=== PATIENT | female | born 1945 | race Two or more races ===

== ENCOUNTER 2018-08-16 23:35 | Inpatient (IN) | payer MEDICARE, MEDICAID ==
[~2018-08-16] VITALS: Ht 149.9 cm; Wt 39.9 kg
[2018-08-17] VITALS (7 sets, daily range): BP systolic 95–122; BP diastolic 55–82
[2018-08-17] MEDS ORDERED: LORAZEPAM INJ 2 MG/ML VIAL IVP ONE
--- NOTE | 2018-08-17 | NUR ---
PT BIB RA. "HAD FREQUENT SEIZURES". NO SOB NOTED. NO ACUTE DISTRESS AT THIS TIME. PT AOX1. NO PAIN NOTED. AWAITING EVAL.
[2018-08-17] MEDS ORDERED: LORAZEPAM INJ 2 MG/ML VIAL ONE (00:03)
--- NOTE | 2018-08-17 00:05 | NUR ---
LABS/URINE COLLECTED AND SENT FOR ANALYSIS.
[2018-08-17 00:27] LABS: APPEARANCE,URINE SL CLOUDY (CLEAR); BILIRUBIN,URINE NEGATIVE (NEGATIVE); BLOOD, URINE NEGATIVE Ery/uL (NEGATIVE); COLOR,URINE YELLOW (YELLOW); KETONES,URINE NEGATIVE (NEGATIVE); LEUKOCYTE ESTERASE ,URINE NEGATIVE (NEGATIVE); NITRITE, URINE NEGATIVE (NEGATIVE); PROTEIN,URINE 1+ mg/dl (NEGATIVE); UGLUCOSE NEGATIVE (NEGATIVE)
[2018-08-17 00:28] LABS: BASOPHILS # (AUTO) 0.1 /CMM (0.0-0.2); EOSINOPHILS % (AUTO) 0.9 % (0.0-6.0); HEMATOCRIT 38 % (33-45); HEMOGLOBIN 12.5 g/dL (11.5-14.8); LYMPHOCYTES # (AUTO) 2.3 /CMM (0.8-4.8); MEAN CORPUSCULAR HGB CONC 33 g/dl (31.0-36.0); MEAN CORPUSCULAR VOLUME 82 fL (82-100); MONOCYTES # (AUTO) 0.5 /CMM (0.1-1.30); MONOCYTES % (AUTO) 5.3 % (2.0-12.0); NEUTROPHILS # (AUTO) 7.4 /CMM (1.8-8.9); NEUTROPHILS % (AUTO) 70.8 % (43.0-81.0); PLATELET COUNT (AUTO) 473 /CMM (150-450); RED BLOOD CELL COUNT(AUTO) 4.69 MIL/uL (4.0-5.2); WHITE BLOOD COUNT (AUTO) 10.4 K/uL (4.3-11.0)
[2018-08-17] MEDS ORDERED: IV NS 0.9% 500 ML BAG IV ONE ×2 (00:30)
[2018-08-17 00:35] LABS: CALCIUM, SERUM 8.6 mg/dL (8.5-10.1); CARBON DIOXIDE 17 mmol/L (21-32); CHLORIDE 101 mmol/L (98-107); CREATININE 0.8 mg/dL (0.6-1.3); GLUCOSE 218 mg/dL (74-106); POTASSIUM 4.7 mmol/L (3.5-5.1); SODIUM SERUM 134 mmol/L (136-145); UREA NITROGEN, BLOOD 11 mg/dL (7-18)
[2018-08-17 00:38] LABS: BACTERIA,URINE Few /HPF (None Seen); RBC,URINE 0-2 /HPF (0-2); SQUAMOUS EPITHELIAL CELL,UR Few /HPF (None Seen)
[2018-08-17] MEDS ORDERED: IV NS 0.9% 1,000 ML BAG IV ONE (01:00)
[2018-08-17] MEDS ORDERED: LEVETIRACETAM (500MG) 500 MG/5 ML VIAL IV ONE (01:57)
[2018-08-17] MEDS ORDERED: HYDROCODONE/APAP 5/325MG 1 EACH TABLET PO PRN (02:00)
[2018-08-17] MEDS ORDERED: MAGNESIUM HYDROXIDE 30 ML UDC PO PRN (02:00)
[2018-08-17] MEDS ORDERED: MAG HYDROX/AL HYDROX/SIMETH 30 ML UDC PO PRN (02:00)
[2018-08-17] MEDS ORDERED: ACETAMINOPHEN 325 MG TABLET PO PRN (02:00)
[2018-08-17] MEDS: LEVETIRACETAM (500MG) 500 MG in IV NS 0.9% 100 ML IV SCH ×2 (02:00→02:24)
[2018-08-17] MEDS ORDERED: ONDANSETRON HCL/PF 4 MG/2 ML VIAL IVP PRN (02:00)
[2018-08-17] MEDS ORDERED: Z GUARD REMEDY 2 OZ OINT TP PRN (02:00)
--- NOTE | 2018-08-17 02:09 | NUR ---
REPORT GIVEN TO CORNELIUS ALCARAZ
[2018-08-17] MEDS ORDERED: LEVETIRACETAM (500MG) 500 MG in IV NS 0.9% 100 ML IV STA (02:10)
--- NOTE | 2018-08-17 02:20 | NUR ---
RN ADMITTING NOTES RECEIVED PT FROM ER, VIA ER. PT IS LETHARGIC, AROUSABLE TO LIGHT PAIN. ON 15L O2 VIA NON REBREATHER MASK. IN NO SIGNS OF PAIN. WITH INTACT AND PATENT (R)WRIST G18, (L)WRIST G24, AND (R)LOWER LEG G20 HEPLOCK. PLACED ON TELEMONITOR, SINUS TACHY, HR 108. F/C INTACT AND IN PLACED DRAINING JOHNNY COLOR URINE. HOB ELEVATED, BED IN LOWEST AND LOCKED POSITION, PADDED SIDE RAILS. SAFETY MEASURES AND SEIZURE PRECAUTION IN PLACED. CALL LIGHT WITHIN EASY REACH. WILL CONT TO MONITOR
[2018-08-17] MEDS: IV NS 0.9% 1,000 ML IV PRN ×2 (02:42→21:49)
[2018-08-17 03:34] LABS: BILIRUBIN,DIRECT 0.1 mg/dL (0.0-0.2); BILIRUBIN,TOTAL 0.3 mg/dL (0.2-1.0)
--- NOTE | 2018-08-17 06:47 | NUR ---
RN NOTES PT IN STABLE CONDITION. NO SEIZURE EPISODE NOTED. ALL NEEDS ANTICIPATED. SAFETY MEASURES AND SEIZURE PRECAUTION OBSERVED AT ALL TIMES. ENDORSED TO AM SHIFT RN FOR ANDREW
--- NOTE | 2018-08-17 07:20 | NUR ---
JOELLE RN OPENING NOTES RECEIVED PT LYING ON BED,LOOKS LETHARGIC AND WEAK.ON TELE HR IS 94 WITH SR.ON NON BREATHER MASK WITH 15L O2 ,SATURATING WELL.NO SOB AND ACUTE DISTRESS NOTED.NO SEIZURE NOTED AT THIS TIME.IV LINE IS ON RIGHT LOWER LEG G20,RIGHT WRIST G18,LEFT WRIST G24,SITE IS CLEAN,DRY AND INTACT.NO INFILTRATION NOTED.SAFETY IS MAINTAINED AT ALL TIMES.BED IS IN LOW POSITION AND LOCKED.CALL LIGHT IS WITHIN REACH.WILL CONTINUE TO MONITOR THE PT CLOSELY.
[2018-08-17] MEDS ORDERED: ATOR10TA PO (07:39)
[2018-08-17] MEDS ORDERED: NA P133E RC (07:39)
[2018-08-17] MEDS ORDERED: SENN-168 PO (07:39)
[2018-08-17] MEDS ORDERED: BISA10SU8 RC (07:39)
[2018-08-17] MEDS ORDERED: MULT-447 PO (07:39)
[2018-08-17] MEDS ORDERED: AMLO5TAB9 PO (07:39)
[2018-08-17] MEDS ORDERED: MEMA10TA PO (07:39)
[2018-08-17] MEDS ORDERED: GABA-532 PO (07:39)
[2018-08-17] MEDS ORDERED: ACET-868 PO (07:39)
[2018-08-17] MEDS ORDERED: LOSA50TA39 PO (07:39)
[2018-08-17] MEDS ORDERED: ONDA4TAB5 PO (07:39)
[2018-08-17] MEDS ORDERED: ACET-2605 PO (07:39)
[2018-08-17] MEDS ORDERED: OMEP20TA20 PO (07:39)
[2018-08-17] MEDS ORDERED: FOLI1TAB16 PO (07:39)
[2018-08-17] MEDS ORDERED: AMIN30LI2 PO (07:39)
[2018-08-17] MEDS ORDERED: MAGN400O6 PO (07:39)
[2018-08-17] MEDS ORDERED: METF-440 PO (07:39)
--- NOTE | 2018-08-17 11:30 | NUR ---
JOELLE RN NOTES BONIFACIO HARRIS SEEN THE PT WOUND AND ORDERED Z GUARD FOR SKIN MAINTAINENCE.
[2018-08-17 12:19] LABS: MAGNESIUM 1.4 mg/dL (1.8-2.4); PHOSPHORUS 3.1 mg/dL (2.5-4.9)
--- NOTE | 2018-08-17 16:45 | NUR ---
JOELLE RN NOTES CHANGED THE NON BREATHER MASK WITH 15 L O2 TO NC WITH 2L O2.PT IS RESTLESS.
--- NOTE | 2018-08-17 17:30 | NUR ---
JOELLE RN NOTES PT IS RESTLESS AND TRYING TO PULL OUT THE NASAL CANNULA.CHECKED THE O2 SATURATION ON ROOM AIR,IT IS 99%.NO SOB AND ACUTE DISTRESS NOTED.FAMILY IS AT BEDSIDE.
--- NOTE | 2018-08-17 19:28 | NUR ---
JOELLE RN CLOSING NOTES PT IS LYING ON BED.STILL CONFUSED.ON ROOM AIR,TOLERATING WELL.RESPIRATION IS EVEN AND NON LABORED.FC IS IN PLACE WITH CLOUDY JOHNNY COLOR URINE.VITAL SIGNS ARE WNL.NO SEIZURE NOTED ON THE SHIFT.ENDORSED TO MECHANICAL INTERN RN TO MONITOR THE O2 SATURATION FREQUENTLY AND MONITOR FOR SEIZURE.
--- NOTE | 2018-08-17 20:00 | NUR ---
jerson rn notes received pts in bed awake with period of confusion , on monitor st on the monitor , v/s stable afebrile , pts on room air sating 99% no sob no distress noted breathing even and unlabored , pts on ivf of ns at 50cc/hr well tolerated by pts. all due meds given as ordered , all needs attended too, call light within reach , pts continue on npo status, hob elevated at 35 degrees at all times , for wound consult ,EEG and st eval as endorsed, kept pts clean dry and comfortable. pts with f/c intact and patent draining with yellowish urine output.
[2018-08-17] MEDS: Magnesium 1GM/D5W 100ML PREMIX 100 ML IV SCH (21:55)
[2018-08-18] VITALS (7 sets, daily range): BP systolic 118–135; BP diastolic 69–83
[2018-08-18] MEDS ORDERED: Magnesium 1GM/D5W 100ML PREMIX 100 ML IV ONE (00:09)
[2018-08-18] MEDS: Magnesium 1GM/D5W 100ML PREMIX 100 ML IV SCH (00:11)
--- NOTE | 2018-08-18 06:30 | NUR ---
jerson rn notes pts in bed awake , comfortable in bed , remains on ivf 0.9 ns at 50cc/hr infusing well. all needs attended too call light with reach remain on room air sating 100% will endorse to rn day shift for continuity ofcare
[2018-08-18 07:27] LABS: BASOPHILS # (AUTO) 0.1 /CMM (0.0-0.2); BASOPHILS % (AUTO) 1.4 % (0.0-2.0); EOSINOPHILS % (AUTO) 1.7 % (0.0-6.0); HEMATOCRIT 35 % (33-45); HEMOGLOBIN 11.6 g/dL (11.5-14.8); LYMPHOCYTES # (AUTO) 1.6 /CMM (0.8-4.8); LYMPHOCYTES % (AUTO) 20.3 % (20.0-44.0); MEAN CORPUSCULAR HGB CONC 34 g/dl (31.0-36.0); MEAN CORPUSCULAR VOLUME 80 fL (82-100); MONOCYTES # (AUTO) 0.5 /CMM (0.1-1.30); MONOCYTES % (AUTO) 6.5 % (2.0-12.0); NEUTROPHILS # (AUTO) 5.5 /CMM (1.8-8.9); NEUTROPHILS % (AUTO) 70.1 % (43.0-81.0); PLATELET COUNT (AUTO) 320 /CMM (150-450); RED BLOOD CELL COUNT(AUTO) 4.35 MIL/uL (4.0-5.2); WHITE BLOOD COUNT (AUTO) 7.8 K/uL (4.3-11.0)
--- NOTE | 2018-08-18 07:39 | NUR ---
JOELLE RN INITIAL NOTES: RECEIVED PT FROM NIGHTSHIFT RN IN STABLE CONDITION. PT IS A/O X1 (SELF) AND FOLLOW SIMPLE COMMANDS. NO SOB OR ACUTE SIGNS OF DISTRESS NOTED. BREATHING IS EVEN AND UNLABORED. PT ON RA AND SATING WELL. SHE DENIES ANY PAIN AT THIS TIME. NO WITNESSED SIEZURE ACTIVITY REPORTED BY THE NIGHTSHIFT RN. SEIZURE PRECAUTIONS INITIATED. MULTIPLE IVS NOTED. ONE TO PT'S LEFT HAND ANOTHER TO HIS RIGHT ARM AND RIGHT ANKLE INFUSING NS @ 50ML/HR. ALL IVS NOTED TO BE PATENT AND INTACT. NO REDRESSOR SIGNS OF INFILTRATION NOTED. PT TOLERATING NS INFUSION WELL. SHE IS CURRENTLY SR ON THE TELE MONITOR WITH A HR OF 92. BED IN LOW LOCKED POSITION, SIDE RAILS UP X3, CALL LIGHT WITHIN REACH, BED ALARM ON. WILL CONTINUE TO MONITOR
[2018-08-18 07:51] LABS: CALCIUM, SERUM 8.1 mg/dL (8.5-10.1); CARBON DIOXIDE 26 mmol/L (21-32); CHLORIDE 104 mmol/L (98-107); CREATININE 0.4 mg/dL (0.6-1.3); GLUCOSE 85 mg/dL (74-106); PHOSPHORUS 3.2 mg/dL (2.5-4.9); POTASSIUM 3.3 mmol/L (3.5-5.1); SODIUM SERUM 139 mmol/L (136-145); UREA NITROGEN, BLOOD 5 mg/dL (7-18)
[2018-08-18 07:53] LABS: CHOLESTEROL 136 mg/dL (<200); HDL CHOLESTEROL 56 mg/dL (40-60); LDL 74 mg/dL (0-99); THYROID STIMULATING HORMONE 0.277 uIU/mL (0.358-3.74); TRIGLYCERIDES 98 mg/dL (30-150)
[2018-08-18] MEDS: POTASSIUM CL. PREMIX PERIPHER. 50 ML IV SCH ×2 (10:57→12:04)
--- NOTE | 2018-08-18 17:05 | NUR ---
JOELLE RN NOTES: NEURO ACID CUTTER ORDERS CALLED RECEIVED BY ELISABETH IN REGARDS TO PT'S SEIZURE MANAGEMENT. PER ACID CUTTER "PLEASE PLACE AN ORDER FOR ATIVAN 1MG Q6HR FOR CLUSTER SEIZURE ACTIVITY AND KEPPRA 500 MG BID VIA IV". PT HAS BEEN SEIZURE FREE THROUGHOUT SHIFT. WILL INPUT AND CARRY OUT ORDERS DIRECTED
[2018-08-18] MEDS ORDERED: LORAZEPAM INJ 2 MG/ML VIAL IV PRN (17:30)
[2018-08-18] MEDS: LEVETIRACETAM (500MG) 500 MG in IV NS 0.9% 100 ML IV SCH (17:47)
[2018-08-18] MEDS: IV NS 0.9% 1,000 ML IV PRN (17:48)
--- NOTE | 2018-08-18 18:11 | NUR ---
JOELLE RN CLOSING NOTES PT REMAINS STABLE. ALL NEEDS MET DURING SHIFT AND ORDERS CARRIED OUT ACCORDINGLY. ALL DUE MEDS GIVEN. PRN CARE RENDERED. PT REPOSITIONED AND TURNED PER HOSPITAL PROTOCOL. IVS REMAIN PATENT AND INTACT. NO REDNESS OR SIGNS OF INFILTRATION NOTED. ROBINS CATHETER REMAINS PATENT AND INTACT. NO SEIZURE ACTIVITY WITNESSED DURING SHIFT. VSS. SAFETY MEASURES REMAIN IN PLACE. WILL ENDORSE TO NIGHTSHIFT RN FOR ANDREW
--- NOTE | 2018-08-18 19:45 | NUR ---
JOELLE/CLEANING MANAGER RECEIVED REPORT FROM DAY NURSE. SEE FLOWSHEET FOR ASSESSMENT AND SKIN ISSUES WHICH ARE ADDRESSED HERE ALONG WITH THE INTERVENTIONS AND EXPECTED OUTCOMES. PT WAS TURNED AND REPOSITIONED FOR COMFORT AND CARE, WILL CONTINUE TO MONITOR THIS PT. NO ACUTE DISTRESS SEEN.PT APPEARS TO BE RESTING COMFORTABLE.
--- NOTE | 2018-08-18 22:10 | NUR ---
JOELLE/HARDNESS TESTER PT'S BED ALARM WENT OFF, PT APPEARED TO BE TRYING TO GET OUT OF BED. PLACED PT BACK INTO BED. PT WAS THEN TURNED AND REPOSITIONED FOR COMFORT AND CARE. PT APPEARED UPSET, STARTED TO CRY FOR A SHORT PERIOD THEN STOPPED, AFTER IT WAS EXPLAINED SHE MIGHT HURT HERSELF. WILL CONTINUE TO MONITOR THIS PT.
[2018-08-19] VITALS: BP 135/82
--- NOTE | 2018-08-19 00:20 | NUR ---
JOELLE/FINANCE ADVISOR PT APPEARS TO BE SLEEPING, NO ACUTE RESPIRATORY DISTRESS SEEN AT THIS TIME. NO ACUTE DISTRESS EMOTIONALLY SEEN EITHER. CALL LIGHT WITHIN REACH, WILL CONTINUE TO MONITOR THIS PT.
--- NOTE | 2018-08-19 02:00 | NUR ---
JOELLE/WIRE WORKER PT WAS GIVEN PM CARE AT THIS TIME ALONG WITH ORAL CARE. PT IS CURRENTLY ON ROOM AIR WITH SATURATION AT 95-98%. PT WAS TURNED AND REPOSITIONED FOR COMFORT AND CARE. WILL CONTINUE TO MONITOR THIS PT. PT APPEARS TO BE RESTING COMFORTABLE WITH NO ACUTE DISTRESS SEEN AT THIS TIME.
[2018-08-19 04:00] VITALS: BP 130/63
[2018-08-19] MEDS: LEVETIRACETAM (500MG) 500 MG in IV NS 0.9% 100 ML IV SCH ×2 (05:08→17:55)
[2018-08-19 06:11] LABS: BASOPHILS # (AUTO) 0.1 /CMM (0.0-0.2); EOSINOPHILS % (AUTO) 1.3 % (0.0-6.0); HEMATOCRIT 38 % (33-45); HEMOGLOBIN 12.4 g/dL (11.5-14.8); LYMPHOCYTES # (AUTO) 1.4 /CMM (0.8-4.8); LYMPHOCYTES % (AUTO) 22.3 % (20.0-44.0); MEAN CORPUSCULAR HGB CONC 33 g/dl (31.0-36.0); MEAN CORPUSCULAR VOLUME 81 fL (82-100); MONOCYTES # (AUTO) 0.4 /CMM (0.1-1.30); MONOCYTES % (AUTO) 5.9 % (2.0-12.0); NEUTROPHILS # (AUTO) 4.5 /CMM (1.8-8.9); NEUTROPHILS % (AUTO) 69.5 % (43.0-81.0); PLATELET COUNT (AUTO) 330 /CMM (150-450); RED BLOOD CELL COUNT(AUTO) 4.68 MIL/uL (4.0-5.2); WHITE BLOOD COUNT (AUTO) 6.5 K/uL (4.3-11.0)
[2018-08-19 06:23] LABS: CALCIUM, SERUM 8.2 mg/dL (8.5-10.1); CARBON DIOXIDE 24 mmol/L (21-32); CHLORIDE 104 mmol/L (98-107); CREATININE 0.4 mg/dL (0.6-1.3); GLUCOSE 72 mg/dL (74-106); MAGNESIUM 1.7 mg/dL (1.8-2.4); PHOSPHORUS 3.7 mg/dL (2.5-4.9); POTASSIUM 4.9 mmol/L (3.5-5.1); SODIUM SERUM 137 mmol/L (136-145); UREA NITROGEN, BLOOD 6 mg/dL (7-18)
--- NOTE | 2018-08-19 06:53 | NUR ---
JOELLE/MACHINE UMBRELLA TIPPER PT'S AM LABS WERE DRAWN, AWAIT FOR ANY ABNORMAL RESULTS. PT WAS TURNED AND REPOSITIONED FOR COMFORT AND CARE. WILL CONTINUE TO MONITOR THIS PT.
[2018-08-19] MEDS: IV NS 0.9% 1,000 ML IV PRN (07:21)
[2018-08-19 08:00] VITALS: BP_SYST 125; BP_SYST 132; BP_DIAS 78; BP_DIAS 85
--- NOTE | 2018-08-19 09:00 | NUR ---
PT AWAKE CONFUSED ASKING FOR WATER, ABLE TO SWALLOW SIPS OF WATER NO COUGH. DR GARRETT UPDATED ON PT'S PROGRESS AND MED REC NEEDED.
[2018-08-19] MEDS ORDERED: NA PHOS,M-B/NA PHOS,DI-BA 1 EA ENEMA RC PRN (10:30)
[2018-08-19] MEDS: METFORMIN 500 MG TABLET PO SCH ×2 (10:30→17:00)
[2018-08-19] MEDS ORDERED: BISACODYL SUPP (10 MG) 10 MG/SUPP.RECT SUPP.RECT RC PRN (10:30)
[2018-08-19] MEDS ORDERED: MAGNESIUM HYDROXIDE 30 ML UDC PO PRN (10:30)
[2018-08-19] MEDS: Magnesium 1GM/D5W 100ML PREMIX 100 ML IV SCH ×2 (10:40→12:09)
[2018-08-19 12:00] VITALS: BP 118/72
--- NOTE | 2018-08-19 12:00 | NUR ---
PT MEDICATED ORDERED ABLE TO SWALLOW MEDICATION WITH APPLE (METFORMIN HELD DUE TO NO DIET ORDERED) SOUSE NO COUGH PALPABLE SWALLOW REFLEX. NO SOB.
[2018-08-19] MEDS: FOLIC ACID 1 MG TABLET PO SCH (12:07)
[2018-08-19] MEDS: GABAPENTIN 100 MG CAPSULE PO SCH (12:07)
[2018-08-19] MEDS: MEMANTINE HCL 5 MG TABLET PO SCH (12:08)
[2018-08-19] MEDS: ATORVASTATIN 10 MG TABLET PO SCH (12:08)
[2018-08-19] MEDS: LOSARTAN POTASSIUM 50 MG TABLET PO SCH (12:10)
[2018-08-19] MEDS: AMLODIPINE BESYLATE 5 MG TABLET PO SCH (12:19)
[2018-08-19] MEDS: PROSOURCE / PROSTAT (PYXIS) 30 ML UDC PO SCH (12:37)
[2018-08-19 16:00] VITALS: BP 137/68
[2018-08-19] MEDS: MULTIVIT W/MINERALS 1 TAB TABLET PO SCH (17:00)
--- NOTE | 2018-08-19 18:59 | NUR ---
PT ASSISTED WITH ORAL CARE AND SKIN CARE.
[2018-08-19 20:00] VITALS: BP 155/77
--- NOTE | 2018-08-19 20:00 | NUR ---
WEATHERIZATION DIRECTOR NOTE PT IN BED AWAKE, MOUTH WORDS. NO SOB, NO DISTRESS OR DISCOMFORT NOTED. NO S/S OF PAIN NOTED. PT IS CONFUSED. SR HR 85 ON TELE MONITOR. PT IS NPO SPEECH EVAL PENDING.ON IVF NS AT 50 ML/HR, NO S/S OF INFILTRATION NOTED. REPOSITION HER FOR SKIN MANAGEMENT. SIDE RAILS UP X 3 AND CALL LIGHT WITHIN REACH. VSS. CONTINUE TO MONITOR HER.
[2018-08-19] MEDS: PANTOPRAZOLE 40 MG TABLET.DR PO SCH (21:00)
[2018-08-19] MEDS ORDERED: SENNOSIDES 8.6 MG TABLET PO SCH (22:00)
[2018-08-20] VITALS (8 sets, daily range): BP systolic 99–149; BP diastolic 40–73
[2018-08-20] MEDS: LEVETIRACETAM (500MG) 500 MG in IV NS 0.9% 100 ML IV SCH (05:38)
[2018-08-20] MEDS: IV NS 0.9% 1,000 ML IV PRN (05:39)
--- NOTE | 2018-08-20 06:23 | NUR ---
MOSAIC TILER NOTE PT IN BED AWAKE, NO DISTRESS OR DISCOMFORT NOTED. NO S/S OF PAIN NOTED. IVF INFUSING WELL, NO S/S OF INFILTRATION NOTED. ON TELE SR. SIDE RAILS UP X 3 AND CALL LIGHT WITHIN REACH. WILL ENDORSE TO DAY SHIFT NURSE FOR CONTINUE TO CARE.
[2018-08-20 06:42] LABS: CALCIUM, SERUM 8.4 mg/dL (8.5-10.1); CARBON DIOXIDE 28 mmol/L (21-32); CHLORIDE 104 mmol/L (98-107); CREATININE 0.5 mg/dL (0.6-1.3); GLUCOSE 74 mg/dL (74-106); MAGNESIUM 1.9 mg/dL (1.8-2.4); POTASSIUM 3.5 mmol/L (3.5-5.1); SODIUM SERUM 140 mmol/L (136-145); UREA NITROGEN, BLOOD 7 mg/dL (7-18)
--- NOTE | 2018-08-20 07:23 | NUR ---
TELE/RN Patient received Patient received from wire coater. Alert to self, mouthing words, appears in no distress or discomfort at this time. IV fluids infusing at 50ml/hr, no signs of infiltration seen. Bed in low setting, side rails X3 in upright position, call light within reach. Will continue to monitor and ensure safety.
--- NOTE | 2018-08-20 07:35 | NUR ---
WOUND CARE CONSULT WOUND CARE RECEIVED CONSULT FOR SACRAL WOUNDS. WOUND CARE WILL DEFER CONSULT AND ALL TREATMENT PLANS TO PLASTIC SURGICAL TEAM WHO ARE CURRENTLY FOLLOWING THIS PATIENT. CAREPLAN DISCUSSED WITH NURSING STAFF, PATIENT WITH GERARDO AT 10. WILL SEE PRN.
[2018-08-20] MEDS: LOSARTAN POTASSIUM 50 MG TABLET PO SCH (08:04)
[2018-08-20] MEDS: METFORMIN 500 MG TABLET PO SCH ×2 (08:05→17:00)
[2018-08-20] MEDS: GABAPENTIN 100 MG CAPSULE PO SCH (08:05)
[2018-08-20] MEDS: ATORVASTATIN 10 MG TABLET PO SCH (08:05)
[2018-08-20] MEDS: FOLIC ACID 1 MG TABLET PO SCH (08:05)
[2018-08-20] MEDS: MEMANTINE HCL 5 MG TABLET PO SCH (08:05)
[2018-08-20] MEDS: AMLODIPINE BESYLATE 5 MG TABLET PO SCH ×2 (08:06→15:56)
[2018-08-20] MEDS: PANTOPRAZOLE 40 MG TABLET.DR PO SCH (08:06)
[2018-08-20] MEDS: MULTIVIT W/MINERALS 1 TAB TABLET PO SCH ×2 (08:06→17:00)
[2018-08-20] MEDS: PROSOURCE / PROSTAT (PYXIS) 30 ML UDC PO SCH (08:06)
--- NOTE | 2018-08-20 10:30 | NUR ---
TELE/RN Swallow evaluation Bedside swallow evaluation completed, patient able to tolerate liquids and mechanical soft diet. Lunch tray ordered.
--- NOTE | 2018-08-20 11:30 | NUR ---
TELE/RN S/B Dr Servin Seen by MD - patient to be discharged back to facility later today. java technical manager Raquel made aware.
--- NOTE | 2018-08-20 14:30 | NUR ---
TELE/RN Briones removed Briones catheter removed, patient to be discharged once voiding. Both heplocks removed, belongings list signed.
--- NOTE | 2018-08-20 15:26 | NUR ---
TELE/RN Report Report called to [facility] and given to Lu.
[2018-08-20] MEDS ORDERED: LEVETIRACETAM (250 MG) 250 MG TABLET PO SCH (18:00)
--- NOTE | 2018-08-20 18:54 | NUR ---
TELE/RN Diischarge Patient discharged to [facility], report already given to facility and paramedics. All personal belongings with patient.
== END 2018-08-20 19:48 | DRG 100 ==
LOC: ER 23:35 → TELE1 08-17 01:56 → TELE-TD 08-17 02:14 → TELE1 08-19 10:29
PROVIDERS: ADMIT Internal Medicine; ATTEND Internal Medicine
DX: G40.909 Epilepsy, unspecified, not intractable, without status epilepticus (principal); I63.511 Cerebral infarction due to unspecified occlusion or stenosis of right middle cerebral artery; N39.0 Urinary tract infection, site not specified; E44.1 Mild protein-calorie malnutrition; Z68.1 Body mass index [BMI] 19.9 or less, adult; I10 Essential (primary) hypertension; E78.5 Hyperlipidemia, unspecified; F32.9 Major depressive disorder, single episode, unspecified; Z86.73 Personal history of transient ischemic attack (TIA), and cerebral infarction without residual deficits; R09.02 Hypoxemia; L30.8 Other specified dermatitis; F03.90 Unspecified dementia, unspecified severity, without behavioral disturbance, psychotic disturbance, mood disturbance, and anxiety; F41.9 Anxiety disorder, unspecified; F09 Unspecified mental disorder due to known physiological condition; E11.9 Type 2 diabetes mellitus without complications
CPT/HCPCS: 36415; 70450-TC; 71045-TC; 80048-TC; 80061-TC; 81000-TC; 82247-TC; 82248-TC; 83605-TC; 83735-TC; 84100-TC; 84439-TC; 84443-TC; 84481; 85025-TC; 85730-TC; 87040-TC; 87081-TC; 87086-TC; 92521; 95819-TC; G0378; J1953; J2060; J3475; J3480; J7030; J7040

== ENCOUNTER 2022-06-03 11:58 | Inpatient (IN) | payer MEDICARE, MEDICAID ==
[~2022-06-03] VITALS: Ht 157.5 cm; Wt 44.0 kg
[~2022-06-03 11:58] MED LIST: ACET-2605 PO; ACET-868 PO; AMIN30LI2 GT; AMLO-212 PO; ATOR10TA GT; BISA10SU11 RC; FOLI1TAB16 GT; GABA-532 GT; LOSA50TA39 GT; MAGN400O6 PO; MEMA10TA GT; METF-440 GT; MULT-447 GT; NA P133E RC; OMEP20TA20 PO; ONDA4TAB5 PO; SENN-261 PO
--- NOTE | 2022-06-03 12:16 | NUR ---
ASSUME PT CARE, SENT FROM SNF FOR WEIGHT LOSS, NOT TOLERATING GT FEEDING AND POSSIBLE UTI EVALUATION, GOWNED PLACED ON MONITOR, VSS. AWAITING MD NUNES.
--- NOTE | 2022-06-03 12:23 | NUR ---
COVID SWAB DONE AND SENT TO LAB
--- NOTE | 2022-06-03 12:24 | NUR ---
IV LINE STARTED, BLOOD DRAWN, LAB AT BEDSIDE TO COLLECT SPECIMEN/
[2022-06-03 12:42] LABS: BASOPHILS % (AUTO) 0.4 % (0.0-2.0); EOSINOPHILS % (AUTO) 2.7 % (0.0-6.0); HEMATOCRIT 34 % (33-45); HEMOGLOBIN 10.9 g/dL (11.5-14.8); LYMPHOCYTES # (AUTO) 0.8 K/uL (0.8-4.8); LYMPHOCYTES % (AUTO) 14.1 % (20.0-44.0); MEAN CORPUSCULAR HGB CONC 32 g/dl (31.0-36.0); MEAN CORPUSCULAR VOLUME 78 fL (82-100); MONOCYTES # (AUTO) 0.4 K/uL (0.1-1.30); MONOCYTES % (AUTO) 6.5 % (2.0-12.0); NEUTROPHILS # (AUTO) 4.4 K/uL (1.8-8.9); NEUTROPHILS % (AUTO) 76.3 % (43.0-81.0); PLATELET COUNT (AUTO) 171 K/uL (150-450); WHITE BLOOD COUNT (AUTO) 5.8 K/uL (4.3-11.0)
[2022-06-03] MEDS ORDERED: FERR325T23 GT (12:48)
[2022-06-03] MEDS ORDERED: LEVE500T9 GT (12:48)
[2022-06-03] MEDS ORDERED: ASCO500C17 GT (12:48)
[2022-06-03] MEDS ORDERED: HYDR-3972 GT (12:48)
[2022-06-03] MEDS ORDERED: METH5TAB6 GT (12:48)
[2022-06-03 12:54] LABS: CALCIUM, SERUM 8.9 mg/dL (8.5-10.1); CARBON DIOXIDE 32 mmol/L (21-32); CHLORIDE 103 mmol/L (98-107); CREATININE 0.6 mg/dL (0.6-1.3); GLUCOSE 120 mg/dL (74-106); POTASSIUM 4.1 mmol/L (3.5-5.1); SODIUM SERUM 140 mmol/L (136-145); UREA NITROGEN, BLOOD 23 mg/dL (7-18)
--- NOTE | 2022-06-03 12:59 | NUR ---
MOVE SHEET SUBMITTED.
[2022-06-03] MEDS ORDERED: LEVOFLOXACIN 750 MG /D5W 150ML PIGGYBACK IV ONE (13:00)
[2022-06-03] MEDS ORDERED: VANCOMYCIN 1 GM in IV D5W 250 ML IV ONE (13:00)
--- NOTE | 2022-06-03 13:04 | NUR ---
NO URINE OUTPUT WITH A STRAIGHT CATHETER, AWARE.
[2022-06-03 13:09] LABS: ALANINE AMINOTRANSFERASE 17 U/L (12-78); ALBUMIN 3.2 g/dL (3.4-5.0); ALKALINE PHOSPHATASE 109 U/L (46-116); ASPARTATE AMINOTRANSFERASE 22 U/L (15-37); BILIRUBIN,DIRECT 0.1 mg/dL (0.0-0.2); BILIRUBIN,TOTAL 0.4 mg/dL (0.2-1.0); TOTAL PROTEIN, SERUM 7.4 g/dL (6.4-8.2)
[2022-06-03] MEDS ORDERED: LEVOFLOXACIN 750 MG /D5W 150ML 150 ML IV ONE (13:09)
--- NOTE | 2022-06-03 13:19 | NUR ---
URINE SPECIMEN COLLECTED. SENT TO LAB.
[2022-06-03 13:26] LABS: BILIRUBIN,URINE NEGATIVE (NEGATIVE); COLOR,URINE YELLOW (YELLOW); LEUKOCYTE ESTERASE ,URINE 1+ (NEGATIVE); NITRITE, URINE NEGATIVE (NEGATIVE); PH,URINE 8.5 (5.0-8.0); PROTEIN,URINE 3+ mg/dl (NEGATIVE); UGLUCOSE NEGATIVE (NEGATIVE)
[2022-06-03] MEDS ORDERED: IV NS 0.9% 1,000 ML IV ONE (13:30)
[2022-06-03 13:46] LABS: BACTERIA,URINE Moderate /HPF (None Seen); SQUAMOUS EPITHELIAL CELL,UR Moderate /HPF (None Seen); WBC,URINE 21-50 /HPF (0-3)
[2022-06-03] MEDS ORDERED: ONDANSETRON HCL/PF 4 MG/2 ML VIAL IVP PRN (14:00)
[2022-06-03] MEDS ORDERED: Z GUARD REMEDY 4 OZ OINT TP PRN (14:00)
--- NOTE | 2022-06-03 14:39 | NUR ---
COVID PCR SWAB COLLECTED. SENT TO LAB.
[2022-06-03] MEDS ORDERED: ACETAMINOPHEN 650 MG/20.3 ML UDC PO PRN (15:00)
[2022-06-03] MEDS ORDERED: ENOXAPARIN SODIUM 40 MG/0.4 ML DISP.SYRIN SQ ONE (16:06)
[2022-06-03] MEDS ORDERED: DEXAMETHASONE SOD PHOSPHATE 10 MG/ML VIAL ONE (16:07)
[2022-06-03] MEDS: ENOXAPARIN SODIUM 40 MG/0.4 ML DISP.SYRIN SQ SCH (16:08)
[2022-06-03] MEDS: DEXAMETHASONE SOD PHOSPHATE 4 MG/ML VIAL IV SCH (16:12)
--- NOTE | 2022-06-03 16:36 | NUR ---
BED ASSIGNED, ROOM 109 TELE
--- NOTE | 2022-06-03 16:44 | NUR ---
REPORT GIVEN TEX ALCARAZ. PT AWAITING TRANSFER TO FLOOR.
--- NOTE | 2022-06-03 16:45 | NUR ---
RN CLOSING NOTES PATIENT RECEIVED FROM ER DUE TO SOB, PNA ASPIRATION ON ROOM AIR. NONVERBAL BED BOUND. RAC 20 G NS 75ML/HR RUNNING. PATIENT HAS SMALL BRUISES ON RIGHT WRIST AND HAND, ONE SMALL HEALED ULCER ON LEFT WRIST, HEALED SACRAL PRESSURE INJURY LOOKS NEWLY HEALED SKIN IS PINK NOT BROKEN. ALL PICTURES TAKEN AND PUT IN THE CHART. PATIENT HAS G TUBE AND WILL CLARIFY THE FEEDING TOMORROW WITH DR. JENI TEJADA. ALL SAFETY MEASURES IN PLACE PATIENT IN BED. WILL INDORSE THE PATIENT TO THE BLINDSTITCH LAPEL PADDER NURSE.
[2022-06-03] MEDS: METHIMAZOLE (5MG) 5 MG TABLET GT SCH (18:09)
[2022-06-03] MEDS: MEMANTINE HCL 5 MG TABLET GT SCH (18:09)
[2022-06-03] MEDS: METFORMIN 500 MG TABLET GT SCH (18:10)
[2022-06-03] MEDS: LEVETIRACETAM SOL (5 ML) 100 MG/ML UDC GT SCH (18:10)
[2022-06-03] MEDS: IV NS 0.9% 1,000 ML IV PRN (18:18)
--- NOTE | 2022-06-03 19:30 | NUR ---
RN OPENING NOTE RECEIVED PATIENT IN BED, AWAKE. NON VERBAL. CURRENTLY ON ROOM AIR, TOLERATING WELL. O2 SAT AT 97%. NO S/SX OF ACUTE RESPI DISTRESS NOTED AT THIS TIME. IV ACCESS NOTED ON RAC #20G, PATENT AND INTACT, RUNNING NS @ 75 ML/HR. PATIENT HAS G TUBE, NO FEEDING. WILL ENDORSE TO AM SHIFT NURSE FOR CLARIFICATION OF ORDER WITH DR. JENI TEJADA. ALL SAFETY MEASURES IN PLACE: BED LOCKED IN LOWEST POSITION. BED ALARM ON. CALL LIGHT WITHIN REACH. SR UP X 3. WILL CONT TO MONITOR.
[2022-06-03 20:00] VITALS: BP 102/69
[2022-06-03] MEDS ORDERED: VANCOMYCIN 500 MG in IV D5W 100 ML IV SCH (21:00)
[2022-06-03] MEDS: ATORVASTATIN 10 MG TABLET GT SCH (21:09)
[2022-06-04] VITALS: BP 115/69
[2022-06-04] MEDS: VANCOMYCIN 0.75 GM in IV D5W 250 ML IV SCH ×2 (00:16→12:29)
[2022-06-04 04:00] VITALS: BP 108/71
[2022-06-04 06:09] LABS: BASOPHILS % (AUTO) 0.5 % (0.0-2.0); EOSINOPHILS % (AUTO) 2.1 % (0.0-6.0); HEMATOCRIT 33 % (33-45); HEMOGLOBIN 10.8 g/dL (11.5-14.8); LYMPHOCYTES # (AUTO) 0.8 K/uL (0.8-4.8); LYMPHOCYTES % (AUTO) 12.5 % (20.0-44.0); MEAN CORPUSCULAR HGB CONC 33 g/dl (31.0-36.0); MEAN CORPUSCULAR VOLUME 78 fL (82-100); MONOCYTES # (AUTO) 0.6 K/uL (0.1-1.30); MONOCYTES % (AUTO) 9.2 % (2.0-12.0); NEUTROPHILS # (AUTO) 4.9 K/uL (1.8-8.9); NEUTROPHILS % (AUTO) 75.7 % (43.0-81.0); PLATELET COUNT (AUTO) 140 K/uL (150-450); RED BLOOD CELL COUNT(AUTO) 4.27 MIL/uL (4.0-5.2); WHITE BLOOD COUNT (AUTO) 6.4 K/uL (4.3-11.0)
--- NOTE | 2022-06-04 06:35 | NUR ---
RN NOTE PT REMAINED STABLE T/O THE NIGHT. DUE MEDS GIVEN. NEEDS ATTENDED TO. PM CARE DONE. TURNED AND REPOSITIONED. WILL ENDORSE TO AM SHIFT NURSE FOR ANDREW.
[2022-06-04 06:59] LABS: ALBUMIN 2.8 g/dL (3.4-5.0); BILIRUBIN,TOTAL 0.5 mg/dL (0.2-1.0); CALCIUM, SERUM 8.3 mg/dL (8.5-10.1); CREATININE 0.6 mg/dL (0.6-1.3); POTASSIUM 3.6 mmol/L (3.5-5.1); TOTAL PROTEIN, SERUM 6.6 g/dL (6.4-8.2)
--- NOTE | 2022-06-04 07:31 | NUR ---
HEALTH ADMINISTRATOR OPENING NOTES: RECEIVED PATIENT IN BED ASLEEP BUT RESPONDS TO VOICE AND TACTILE STIMULI. PATIENT IS NONVERBAL. NO SOB NOTED AT THIS TIME, BREATHING EVEN AND UNLABORED. ON RA WITH OXYGEN SATURATION OF 96%. ON SR WITH HR OF 92. PATIENT HAS IV SITE ON RIGHT AC RUNNING WITH NS @ 75 ML/HR, IV SITE PATENT AND NO S/S INFILTRATION NOTED. G-TUBE SITE IN PLACE, NO RESIDUAL, DRESSING DRY AND INTACT, FLUSHES WELL. HOB KEPT ELEVATED. BED LOCKED AND IN LOWEST POSITION. ALL SAFETY MEASURES IN PLACE, WILL CONTINUE TO MONITOR PATIENT THROUGHOUT SHIFT.
[2022-06-04] MEDS: IV NS 0.9% 1,000 ML IV PRN (07:48)
[2022-06-04 08:00] VITALS: BP 111/69
[2022-06-04] MEDS: LEVETIRACETAM SOL (5 ML) 100 MG/ML UDC GT SCH ×2 (08:49→16:18)
[2022-06-04] MEDS: FOLIC ACID 1 MG TABLET GT SCH (08:49)
[2022-06-04] MEDS: METHIMAZOLE (5MG) 5 MG TABLET GT SCH ×2 (08:49→16:18)
[2022-06-04] MEDS: DEXAMETHASONE SOD PHOSPHATE 4 MG/ML VIAL IV SCH (08:49)
[2022-06-04] MEDS: GABAPENTIN 100 MG CAPSULE GT SCH (08:50)
[2022-06-04] MEDS: METFORMIN 500 MG TABLET GT SCH ×2 (08:50→16:17)
[2022-06-04] MEDS: LOSARTAN POTASSIUM 50 MG TABLET GT SCH (08:51)
[2022-06-04] MEDS: MEMANTINE HCL 5 MG TABLET GT SCH ×2 (08:51→16:18)
[2022-06-04 12:00] VITALS: BP 113/66
[2022-06-04] MEDS: ENOXAPARIN SODIUM 40 MG/0.4 ML DISP.SYRIN SQ SCH (14:39)
[2022-06-04] MEDS: LEVOFLOXACIN 750 MG /D5W 150ML 750 MG in PREMIX 1 EA IV SCH (14:39)
[2022-06-04 16:00] VITALS: BP 101/59
--- NOTE | 2022-06-04 18:55 | NUR ---
[facility] FLOOR LAYER CLOSING NOTES: RECEIVED PATIENT IN BED, AWAKE, NON VERBAL BUT RESPONDS TO VOICE AND TACTILE STIMULI. NO RESPIRATORY DISTRESS NOTED THROUGHOUT SHIFT. ON SR WITH HR OF 88 ON TELE MONITOR. ALL NEEDS MET AND ANTICIPATED. WILL ENDORSE TO NEXT SHIFT NURSE.
[2022-06-04 20:00] VITALS: BP 129/75
[2022-06-04] MEDS: ATORVASTATIN 10 MG TABLET GT SCH (21:20)
[2022-06-05] VITALS: BP 121/93
[2022-06-05] MEDS: VANCOMYCIN 0.75 GM in IV D5W 250 ML IV SCH (01:55)
[2022-06-05] MEDS: IV NS 0.9% 1,000 ML IV PRN ×2 (01:55→15:40)
[2022-06-05 04:00] VITALS: BP 110/82
--- NOTE | 2022-06-05 06:41 | NUR ---
RN CLOSING NOTED PATIENT RESTING IN BED. NONVERBAL, ALERT, TRACKS. ROOM AIR. NO SOB NOTED. NO S/S PAIN NOTED. SINUS RHTYHM ON THE MONITOR. NPO PENDING DIETARY CONSULT. IVF RUNNING. ABX GIVEN ORDERED. PENDING CT CHEST WO CON. PENDING PCR RESULTS
--- NOTE | 2022-06-05 07:40 | NUR ---
WINDOW GLAZIER NOTE Received patient in bed, she is alert with confusion but non-verbal, resting in bed. Telemetry showed SR.hr 77 SpO2 % RA. no sob noted at this time, Right AC IV site was dry and intact, with a NS IVF running at 75mL/hr. NPO at the moment with the G-tube in place. No complaint at the moment. Call light placed within reach. Bed was locked and set at the lowest position. Safety measures implemented. All needs attended and will continue to monitor.
[2022-06-05 07:53] LABS: CALCIUM, SERUM 7.9 mg/dL (8.5-10.1); CREATININE 0.6 mg/dL (0.6-1.3); POTASSIUM 3.3 mmol/L (3.5-5.1)
[2022-06-05 08:00] VITALS: BP 109/65
[2022-06-05] MEDS: LEVETIRACETAM SOL (5 ML) 100 MG/ML UDC GT SCH ×2 (08:46→16:15)
[2022-06-05] MEDS: METHIMAZOLE (5MG) 5 MG TABLET GT SCH ×2 (08:47→16:15)
[2022-06-05] MEDS: FOLIC ACID 1 MG TABLET GT SCH (08:47)
[2022-06-05] MEDS: DEXAMETHASONE SOD PHOSPHATE 10 MG/ML VIAL IV SCH (08:47)
[2022-06-05] MEDS: GABAPENTIN 100 MG CAPSULE GT SCH (08:47)
[2022-06-05] MEDS: MEMANTINE HCL 5 MG TABLET GT SCH ×2 (08:48→16:15)
[2022-06-05] MEDS: LOSARTAN POTASSIUM 50 MG TABLET GT SCH (08:48)
[2022-06-05] MEDS: METFORMIN 500 MG TABLET GT SCH ×2 (08:48→16:15)
--- NOTE | 2022-06-05 09:52 | NUR ---
INSTANT POTATO PROCESSOR NOTE CONFIRMED WITH DR. TEJADA ABOUT GT FEEDING. HE ORDERED TO RESUME JEVITY 1.2 RUNNING AT 45ML/HR ACCORDING TO COLLEGE ARCHIVIST'S ADVICE. HE ALSO CONFIRMED THE CONTINUATION OF NS AT 75ML/HR.
[2022-06-05] MEDS ORDERED: JEVITY 1.2 CAL 1,000 ML BOTTLE GT PRN (10:30)
[2022-06-05] MEDS ORDERED: POTASSIUM CHLORIDE 20 MEQ POWDER PACKET GT SCH (11:00)
--- NOTE | 2022-06-05 11:32 | NUR ---
satellite television installer note called daughter notified that patent trying to remove all lines and try to get out off bed at risk for fall , stated its ok per dr gaspar ok to place soft restrain ,order carried out
[2022-06-05 12:00] VITALS: BP 127/91
[2022-06-05] MEDS: VANCOMYCIN 1 GM in IV D5W 250ml IV SCH (12:05)
[2022-06-05] MEDS: ENOXAPARIN SODIUM 40 MG/0.4 ML DISP.SYRIN SQ SCH (13:04)
[2022-06-05] MEDS: LEVOFLOXACIN 750 MG /D5W 150ML 750 MG in PREMIX 1 EA IV SCH (13:04)
[2022-06-05] MEDS: JEVITY 1.2 CAL 1,000 ML BOTTLE GT PRN (13:05)
--- NOTE | 2022-06-05 15:09 | NUR ---
MULTIFOLD OPERATOR NOTE PATIENT IS HARD STICK PER DR TEJADA OK TO INSERT TO MIDLINE
[2022-06-05 16:00] VITALS: BP 114/73
--- NOTE | 2022-06-05 16:54 | NUR ---
CAPABILITY LEAD NOTE RT FA IV HL INTACT ,CHANGED SOFT RESTAN ON LT ARM
--- NOTE | 2022-06-05 17:02 | NUR ---
HAMMER HEATER NOTES UNABLE TO REMOVE RESTRAINT AT THIS MOMENT. PATIENT TRIED TO REMOVE IV LINES AND TRIED TO CLIMB OUT OF BED. CONTINUE TO MONITOR.
--- NOTE | 2022-06-05 18:25 | NUR ---
press writer notes Patient was resting in bed, opening eyes spontaneously but confused. Telemetry showed SR HR 84/min. SpO2 96% RA. Afebrile this shift. Passed urine thrice and had bowel movement once. Resumed Jevity 1.2 Gtube feeding at 1300 and tolerated well. Right hand IV cannula #24 was dry and intact. All needs were attended. Call light was placed. Bed was locked and placed in lowest position. Safety measures were implemented. Will endorse PM nurse to continue care and monitoring.
--- NOTE | 2022-06-05 19:09 | NUR ---
coldfusion notes Midline nurse at bedside, midline was inserted at left upper arm with good blood return. Patient tried to pull out the JACKIE midline, put a soft restraint on her left hand as well. Dr and family are informed.
[2022-06-05 20:00] VITALS: BP 135/67
[2022-06-05] MEDS: ATORVASTATIN 10 MG TABLET GT SCH (21:57)
[2022-06-06] VITALS: BP 149/79
[2022-06-06] MEDS: VANCOMYCIN 1 GM in IV D5W 250ml IV SCH ×2 (00:12→14:11)
[2022-06-06 04:00] VITALS: BP 146/76
--- NOTE | 2022-06-06 06:58 | NUR ---
PATIENT IN BED ASLEEP BUT RESPONDS TO VOICE AND TACTILE STIMULI. PATIENT IS NONVERBAL. NO SOB NOTED AT THIS TIME, BREATHING EVEN AND UNLABORED. ON RA WITH OXYGEN SATURATION OF 97%. ON SR WITH HR OF 90'S. PATIENT HAS IV SITE ON RIGHT HAND AND JACKIE ML INFUSING NS @ 75 ML/HR, IV SITES PATENT AND NO S/S INFILTRATION NOTED. G-TUBE SITE IN PLACE, NO RESIDUAL, DRESSING DRY AND INTACT, FLUSHES WELL, INFUSING JEVITY 1.2 AT 45ML/HR. HOB KEPT ELEVATED. BED LOCKED AND IN LOWEST POSITION. ALL SAFETY MEASURES IN PLACE, WILL ENDORSE TO NEXT NURSE ON DUTY FOR CONTINUITY OF CARE.
[2022-06-06 07:13] LABS: CALCIUM, SERUM 8.1 mg/dL (8.5-10.1); CREATININE 0.7 mg/dL (0.6-1.3); POTASSIUM 3.3 mmol/L (3.5-5.1)
[2022-06-06 08:00] VITALS: BP 138/56
--- NOTE | 2022-06-06 09:11 | NUR ---
WOUND CARE CONSULT: REVIEWED CHART, NURSING DOCUMENTATION AND PHOTO WHICH INDICATES LARGE AREA OF SACRAL SCARRING WHICH EXTENDS TO BUTTOCKS, PRESENT ON ADMISSION. RECOMMENDATIONS MADE FOR SKIN PROTECTION. DISCUSSED WITH NURSING STAF. CHATTERJEE IN AGREEMENT WITH PLAN OF CARE.
[2022-06-06] MEDS ORDERED: POTASSIUM CHLORIDE 20 MEQ POWDER PACKET GT SCH (10:00)
[2022-06-06] MEDS: LEVETIRACETAM SOL (5 ML) 100 MG/ML UDC GT SCH ×2 (10:18→22:08)
[2022-06-06] MEDS: METHIMAZOLE (5MG) 5 MG TABLET GT SCH ×2 (10:18→22:08)
[2022-06-06] MEDS: DEXAMETHASONE SOD PHOSPHATE 10 MG/ML VIAL IV SCH (10:18)
[2022-06-06] MEDS: LOSARTAN POTASSIUM 50 MG TABLET GT SCH (10:19)
[2022-06-06] MEDS: METFORMIN 500 MG TABLET GT SCH ×2 (10:19→16:25)
[2022-06-06] MEDS: FOLIC ACID 1 MG TABLET GT SCH (10:19)
[2022-06-06] MEDS: MEMANTINE HCL 5 MG TABLET GT SCH ×2 (10:19→22:08)
[2022-06-06] MEDS: GABAPENTIN 100 MG CAPSULE GT SCH (10:21)
[2022-06-06 12:00] VITALS: BP 132/68
[2022-06-06] MEDS: IV NS 0.9% 1,000 ML IV PRN (14:38)
[2022-06-06 16:00] VITALS: BP 120/66
[2022-06-06] MEDS: LEVOFLOXACIN 750 MG /D5W 150ML 750 MG in PREMIX 1 EA IV SCH (16:22)
[2022-06-06] MEDS: ENOXAPARIN SODIUM 40 MG/0.4 ML DISP.SYRIN SQ SCH (16:24)
[2022-06-06 20:00] VITALS: BP 122/72
[2022-06-06] MEDS: MEROPENEM 500 MG in IV NS 0.9% 100 ML IV SCH (22:08)
[2022-06-06] MEDS: ATORVASTATIN 10 MG TABLET GT SCH (22:08)
[2022-06-07] VITALS: BP 134/74
--- NOTE | 2022-06-07 00:13 | NUR ---
RN CLOSING NOTE PT IN BED AOX1, CONFUSED BREATHING ON ROOM AIR AT 98%. G TUBE RUNNING JEVITY AT 45 MLS/HR. TELE READING SR WITH HR OF 91. JACKIE MIDLINE PATENT AND INTACT. ALL SAFETY MEASURES IN PLACE, BED LOCKED IN LOWEST POSITION, WILL ENDORSE CONTINUITY OF CARE TO CERTIFIED HAND THERAPIST NURSE.
--- NOTE | 2022-06-07 00:55 | NUR ---
RN OPENING NOTES; RECEIVED PT IN BED AOX1, CONFUSED,MURPHY WELL ON ROOM AIR,NO SIGN SOB/DISTRESS NOTED,G TUBE RUNNING JEVITY AT 45 MLS/HR.IV ACCESS ON JACKIE MIDLINE PATENT AND INTACT. ALL SAFETY MEASURES IN PLACE, BED LOCKED IN LOWEST POSITION, WILL CONTINUE TO MONITOR.
[2022-06-07] MEDS: VANCOMYCIN 0.75 GM in IV D5W 250 ML IV SCH ×2 (01:33→13:18)
[2022-06-07 04:00] VITALS: BP 125/83
--- NOTE | 2022-06-07 06:18 | NUR ---
RN CLOSING NOTES; PT IN BED AAOX1, CONFUSED,MURPHY WELL ON ROOM AIR,NO SIGN SOB/DISTRESS NOTED,NO SIGN FOR PAIN/DISCOMFORT NOTED,DUE MEDS GIVEN ORDER,ALL NEEDS ATTENDED,G TUBE RUNNING JEVITY AT 45 MLS/HR.IV ACCESS ON JACKIE MIDLINE PATENT AND INTACT. ALL SAFETY MEASURES IN PLACE, BED LOCKED IN LOWEST POSITION, WILL ENDORSED TO NEXT SHIFT.
[2022-06-07 07:12] LABS: CALCIUM, SERUM 8.3 mg/dL (8.5-10.1); CARBON DIOXIDE 26 mmol/L (21-32); CHLORIDE 104 mmol/L (98-107); CREATININE 0.7 mg/dL (0.6-1.3); GLUCOSE 100 mg/dL (74-106); POTASSIUM 3.2 mmol/L (3.5-5.1); SODIUM SERUM 137 mmol/L (136-145); UREA NITROGEN, BLOOD 9 mg/dL (7-18)
--- NOTE | 2022-06-07 07:59 | NUR ---
rn opening note pt is alert and oriented x1-2. pt nonverbal, confused. patient is on room air. patient has bilateral soft restraints.no skin or circulation uss
[2022-06-07 08:00] VITALS: BP 120/69
--- NOTE | 2022-06-07 08:00 | NUR ---
rn opening note pt is alert and oriented x1-2. pt nonverbal, confused. patient is on room air. patient has bilateral soft restraints.no skin or circulation issues noted at this time. patient is fall risk. patient has rt hand 24 g and left upper arm midline. running normal saline. all safety measures in place. call light within reach. bed locked at lowest position.side rails up x2. bed alarm on
[2022-06-07] MEDS: MEROPENEM 500 MG in IV NS 0.9% 100 ML IV SCH ×2 (08:59→20:28)
--- NOTE | 2022-06-07 09:00 | NUR ---
rn note spoke with family member and provided updates
[2022-06-07] MEDS: LEVETIRACETAM SOL (5 ML) 100 MG/ML UDC GT SCH ×2 (09:41→16:54)
[2022-06-07] MEDS: FOLIC ACID 1 MG TABLET GT SCH (09:41)
[2022-06-07] MEDS: MEMANTINE HCL 5 MG TABLET GT SCH ×2 (09:41→16:54)
[2022-06-07] MEDS: LOSARTAN POTASSIUM 50 MG TABLET GT SCH (09:41)
[2022-06-07] MEDS: METFORMIN 500 MG TABLET GT SCH ×2 (09:41→16:54)
[2022-06-07] MEDS: GABAPENTIN 100 MG CAPSULE GT SCH (09:42)
[2022-06-07] MEDS: DEXAMETHASONE SOD PHOSPHATE 10 MG/ML VIAL IV SCH (09:42)
[2022-06-07] MEDS: METHIMAZOLE (5MG) 5 MG TABLET GT SCH ×2 (09:42→16:54)
--- NOTE | 2022-06-07 09:42 | NUR ---
rn note pulled out tapazole from [facility]. medication wrapper was removed and medication fell on the floor.pulled out another one and pharmacy is aware
[2022-06-07] MEDS ORDERED: POTASSIUM CHLORIDE 20 MEQ POWDER PACKET GT SCH (10:00)
[2022-06-07 12:00] VITALS: BP 134/69
[2022-06-07] MEDS: ENOXAPARIN SODIUM 40 MG/0.4 ML DISP.SYRIN SQ SCH ×2 (13:19→13:34)
--- NOTE | 2022-06-07 13:31 | NUR ---
rn note pulled out lovenox from [facility]. attempted to give subcutaneous injection to pt but pt refused by kicking and moving body against it
[2022-06-07 16:00] VITALS: BP 110/54
[2022-06-07] MEDS: JEVITY 1.2 CAL 1,000 ML BOTTLE GT PRN (17:08)
[2022-06-07] MEDS: IV NS 0.9% 1,000 ML IV PRN (17:09)
--- NOTE | 2022-06-07 19:35 | NUR ---
RN OPENING NOTES; RECEIVED PT IN BED, AWAKE, A/OX1 WITH CONFUSION AND RESPONSIVE TO PAINFUL STIMULI. ON ROOM AIR ND PT TOLERATED WELL. IV ACCESS ON JACKIE MIDLINE INTACT AND PATENT. NO S/S OF INFILTRATIONS. RUNNING N/S AT 75CC/HR. NO FACIAL GRIMACING NOTED. NO ACUTE DISTRESS. G TUBE FEEDING RUNNING AT JEVITY AT 45 CC/HR. BILATERAL SOFT RESTRAINT ON. ALL SAFETY MEASURES IN PLACE, BED IN LOWEST POSITION AND LOCKED. SIDE RAILS UP X3, PLACE CALL LIGHT WITH IN REACH. WILL CONTINUE TO MONITOR
[2022-06-07 20:00] VITALS: BP_SYST 121; BP_SYST 97; BP_DIAS 49; BP_DIAS 66
--- NOTE | 2022-06-07 20:00 | NUR ---
RN CLOSING NOTE pt is alert and oriented x1-2. pt nonverbal, confused. patient is on room air tolerating above 92%. patient has bilateral soft restraints.no skin or circulation issues noted at this time. patient is fall risk. patient has left upper arm midline.iv patent and flushing well. running normal saline. all safety measures in place. call light within reach. bed locked at lowest position.side rails up x2. bed alarm on
[2022-06-07] MEDS: ATORVASTATIN 10 MG TABLET GT SCH (21:54)
[2022-06-07] MEDS ORDERED: GUAIFENESIN/D-METHORPHAN HB 5 ML UDC GT PRN (23:30)
[2022-06-08] VITALS: BP 124/67
--- NOTE | 2022-06-08 | NUR ---
RN NOTES: NOTED PT WITH ON AND OFF NON-PRODUCTIVE. ROBITUSSIN GIVEN PER DR ORDERED. PT TOLERATED WELL.
[2022-06-08] MEDS: VANCOMYCIN 0.75 GM in IV D5W 250 ML IV SCH (01:21)
[2022-06-08 04:00] VITALS: BP 142/79
[2022-06-08 06:33] LABS: BASOPHILS % (AUTO) 0.5 % (0.0-2.0); EOSINOPHILS % (AUTO) 1.7 % (0.0-6.0); HEMATOCRIT 32 % (33-45); HEMOGLOBIN 10.4 g/dL (11.5-14.8); LYMPHOCYTES # (AUTO) 1.1 K/uL (0.8-4.8); LYMPHOCYTES % (AUTO) 20.1 % (20.0-44.0); MEAN CORPUSCULAR HGB CONC 32 g/dl (31.0-36.0); MEAN CORPUSCULAR VOLUME 78 fL (82-100); MONOCYTES # (AUTO) 0.5 K/uL (0.1-1.30); MONOCYTES % (AUTO) 9.6 % (2.0-12.0); NEUTROPHILS # (AUTO) 3.9 K/uL (1.8-8.9); NEUTROPHILS % (AUTO) 68.1 % (43.0-81.0); PLATELET COUNT (AUTO) 128 K/uL (150-450); RED BLOOD CELL COUNT(AUTO) 4.17 MIL/uL (4.0-5.2); WHITE BLOOD COUNT (AUTO) 5.7 K/uL (4.3-11.0)
--- NOTE | 2022-06-08 06:35 | NUR ---
RN CLOSING NOTES; PT IN BED, AWAKE, A/OX1 WITH CONFUSION AND RESPONSIVE TO PAINFUL STIMULI. ON ROOM AIR AND PT TOLERATED WELL. O2 SAT 99%. IV ACCESS ON JACKIE MIDLINE INTACT AND PATENT. NO S/S OF INFILTRATIONS. RUNNING N/S AT 75CC/HR. NO FACIAL GRIMACING NOTED. NO ACUTE DISTRESS. G- TUBE FEEDING RUNNING AT JEVITY AT 45 CC/HR. BILATERAL SOFT RESTRAINT ON. RELEASED Q 2 HR TO ASSESS CIRCULATION. ALL DUE MEDS GIVEN ORDERED. ALL SAFETY MEASURES IN PLACE, BED IN LOWEST POSITION AND LOCKED. SIDE RAILS UP X3, PLACE CALL LIGHT WITH IN REACH. WILL ENDORSE TO MORNING SHIFT NURSE.
[2022-06-08 06:46] LABS: CALCIUM, SERUM 8.2 mg/dL (8.5-10.1); CARBON DIOXIDE 26 mmol/L (21-32); CHLORIDE 104 mmol/L (98-107); CREATININE 0.6 mg/dL (0.6-1.3); GLUCOSE 141 mg/dL (74-106); MAGNESIUM 1.6 mg/dL (1.8-2.4); PHOSPHORUS 2.1 mg/dL (2.5-4.9); POTASSIUM 3.4 mmol/L (3.5-5.1); SODIUM SERUM 137 mmol/L (136-145); UREA NITROGEN, BLOOD 8 mg/dL (7-18)
--- NOTE | 2022-06-08 07:10 | NUR ---
RN NOTE RECEIVED PATIENT IN BED RESTING ALERT ORIENTED X1 RESPONSIVE TO PAINFUL STIMULI,IV SITE IS ON LEFT UPPER ARM MIDLINE INTACT PATENT,ON NS 75CC/HR,ON G-TUBED FEEDING JEVITY 1.2 45CC/HR,CHECKED PLACEMENT IN PLACE NO RESIDUAL NOTED,SAFETY MEASURE IMPLEMENT BED IN LOW POSITON AND LOCKED,HEAD OF THE BED ELEVATED,SOFT BILATERAL IN PLACE WILL CHECK EVERY 15 MINS FOR SKIN BREAKDOWN,AND CIRCULATION,CONTINUE TO MONITOR.
[2022-06-08] MEDS: MEROPENEM 500 MG in IV NS 0.9% 100 ML IV SCH (07:29)
[2022-06-08 08:00] VITALS: BP 144/70
[2022-06-08] MEDS: LEVETIRACETAM SOL (5 ML) 100 MG/ML UDC GT SCH (08:57)
[2022-06-08] MEDS: LOSARTAN POTASSIUM 50 MG TABLET GT SCH (08:58)
[2022-06-08] MEDS: METFORMIN 500 MG TABLET GT SCH (08:58)
[2022-06-08] MEDS: GABAPENTIN 100 MG CAPSULE GT SCH (08:59)
[2022-06-08] MEDS: METHIMAZOLE (5MG) 5 MG TABLET GT SCH (08:59)
[2022-06-08] MEDS: DEXAMETHASONE SOD PHOSPHATE 10 MG/ML VIAL IV SCH (08:59)
[2022-06-08] MEDS: MEMANTINE HCL 5 MG TABLET GT SCH (08:59)
[2022-06-08] MEDS: FOLIC ACID 1 MG TABLET GT SCH (09:01)
[2022-06-08] MEDS: Magnesium 1GM/D5W 100ML PREMIX 100 ML IV SCH ×2 (09:39→11:37)
[2022-06-08] MEDS ORDERED: NEUTRA PHOS 1 POWD.PACKET GT ONE (10:00)
[2022-06-08] MEDS ORDERED: POTASSIUM CHLORIDE 20 MEQ POWDER PACKET GT SCH (10:00)
[2022-06-08 12:00] VITALS: BP 121/66
[2022-06-08] MEDS ORDERED: MERO500V23 IV (12:08)
[2022-06-08] MEDS: ENOXAPARIN SODIUM 40 MG/0.4 ML DISP.SYRIN SQ SCH (14:35)
--- NOTE | 2022-06-08 15:00 | NUR ---
RN NOTE PATIENT WILL DISCHARGE TO SNF [facility] REPORT GIVEN TO GREGOR RN CONTINUE TO MONITOR.
[2022-06-08 16:00] VITALS: BP 114/69
[2022-06-08] MEDS ORDERED: VANCOMYCIN 500 MG in IV D5W 100ml IV SCH (16:00)
--- NOTE | 2022-06-08 16:03 | NUR ---
SPOUTING INSTALLER NOTE PATIENT DISCHARGE TO [facility] F[facility],ALERT ORIENTED X1 NON VERBAL ON ROOM AIR VITAL SIGNS IS 114/69 HR 90 RR:24 O2:98% ON ROOM AIR TEMP 98.1.ON G-TUBE FEEDING JEVITY 1.2 45CC/HR LEFT UPPER ARM MIDLINE,SHE PICKED UP BY [facility] WITH ACCOMPANIED BY 2 CONTOUR BAND SAW OPERATOR VERTICAL.PATIENT LEFT HOSPITAL IN STABLE CONDITION BY [facility],CALLED HER DAUGHTER RIVER NOTIFIED.
== END 2022-06-08 15:43 | DRG 689 ==
LOC: ER 12:00 → TELE1 16:56
PROVIDERS: ADMIT Internal Medicine; ATTEND Nurse Practitioner Acute Care
PROC: 05HC33Z Insertion of Infusion Device into Left Basilic Vein, Percutaneous Approach (ICD-10-PCS; principal; 2022-06-06)
DX: N39.0 Urinary tract infection, site not specified (principal); G93.41 Metabolic encephalopathy; J84.9 Interstitial pulmonary disease, unspecified; Z16.12 Extended spectrum beta lactamase (ESBL) resistance; G40.909 Epilepsy, unspecified, not intractable, without status epilepticus; Z20.822 Contact with and (suspected) exposure to COVID-19; I10 Essential (primary) hypertension; G60.9 Hereditary and idiopathic neuropathy, unspecified; E78.5 Hyperlipidemia, unspecified; R13.10 Dysphagia, unspecified; Z88.0 Allergy status to penicillin; Z79.84 Long term (current) use of oral hypoglycemic drugs; Z79.899 Other long term (current) drug therapy; Z86.73 Personal history of transient ischemic attack (TIA), and cerebral infarction without residual deficits; E11.65 Type 2 diabetes mellitus with hyperglycemia; F09 Unspecified mental disorder due to known physiological condition; F03.90 Unspecified dementia, unspecified severity, without behavioral disturbance, psychotic disturbance, mood disturbance, and anxiety; E87.6 Hypokalemia; B96.20 Unspecified Escherichia coli [E. coli] as the cause of diseases classified elsewhere; Z93.1 Gastrostomy status
CPT/HCPCS: 36410; 36415; 71045-TC; 71250-TC; 80048-TC; 80053-TC; 80076-TC; 80202-TC; 81001; 83605-TC; 83735-TC; 84100-TC; 84484-TC; 85025-TC; 85730-TC; 86140-TC; 87040-TC; 87081-TC; 87086-TC; 87186-TC; A4216; C9803; G0378; J1100; J1650; J1953; J1956; J2185; J3370; J3475; J7030; J7050; J7060; U0003

== ENCOUNTER 2022-06-27 20:06 | Inpatient (IN) | payer MEDICARE, OTHER ==
[~2022-06-27] VITALS: Ht 152.4 cm; Wt 44.5 kg
[~2022-06-27 20:06] MED LIST changes: -AMLO-212 PO; +ASCO500C17 GT; +FERR325T23 GT; +HYDR-3972 GT; +LEVE500T9 GT; +MERO500V23 IV; +METH5TAB6 GT; -OMEP20TA20 PO; -ONDA4TAB5 PO; -SENN-261 PO
--- NOTE | 2022-06-27 20:50 | NUR ---
PT JOY FROM [facility] C/O VOMITTING SINCE 06/24. PER FACILITY "NOT TOLERATING GTUBE FEEDINGS". PT A/OX-; WNL PER PT'S BASELINE. TOLERATING R/A WELL WITH NO RESP DISTRESS. SAFETY MEASURES IN PLACE.
[2022-06-27] MEDS ORDERED: IV NS 0.9% 1,000 ML BAG IV ONE (22:30)
[2022-06-27] MEDS ORDERED: ONDANSETRON HCL/PF - ER 4 MG/2 ML VIAL IV ONE (22:30)
[2022-06-27] MEDS ORDERED: ONDANSETRON HCL/PF 4 MG/2 ML VIAL ONE (22:30)
--- NOTE | 2022-06-27 22:42 | NUR ---
URINE COLLECTED AND SENT TO LAB
[2022-06-27 23:50] LABS: BASOPHILS % (AUTO) 0.9 % (0.0-2.0); EOSINOPHILS % (AUTO) 2.4 % (0.0-6.0); HEMATOCRIT 33 % (33-45); HEMOGLOBIN 10.4 g/dL (11.5-14.8); LYMPHOCYTES % (AUTO) 19.2 % (20.0-44.0); MEAN CORPUSCULAR HGB CONC 32 g/dl (31.0-36.0); MEAN CORPUSCULAR VOLUME 77 fL (82-100); MONOCYTES # (AUTO) 0.4 K/uL (0.1-1.30); MONOCYTES % (AUTO) 6.8 % (2.0-12.0); NEUTROPHILS # (AUTO) 3.8 K/uL (1.8-8.9); NEUTROPHILS % (AUTO) 70.7 % (43.0-81.0); PLATELET COUNT (AUTO) 203 K/uL (150-450); RED BLOOD CELL COUNT(AUTO) 4.26 MIL/uL (4.0-5.2); WHITE BLOOD COUNT (AUTO) 5.4 K/uL (4.3-11.0)
--- NOTE | 2022-06-28 | NUR ---
CHRIS COLLECTED AND SENT TO LAB
[2022-06-28 00:01] LABS: CALCIUM, SERUM 9.1 mg/dL (8.5-10.1); CARBON DIOXIDE 33 mmol/L (21-32); CHLORIDE 106 mmol/L (98-107); CREATININE 0.8 mg/dL (0.6-1.3); GLUCOSE 121 mg/dL (74-106); POTASSIUM 3.7 mmol/L (3.5-5.1); SODIUM SERUM 142 mmol/L (136-145); UREA NITROGEN, BLOOD 34 mg/dL (7-18)
[2022-06-28 00:03] LABS: BILIRUBIN,URINE NEGATIVE (NEGATIVE); COLOR,URINE YELLOW (YELLOW); LEUKOCYTE ESTERASE ,URINE NEGATIVE (NEGATIVE); NITRITE, URINE NEGATIVE (NEGATIVE); PH,URINE 8.5 (5.0-8.0); PROTEIN,URINE NEGATIVE (NEGATIVE); UGLUCOSE NEGATIVE (NEGATIVE); UROBILINOGEN,URINE 0.2 EU/dL (0.2)
[2022-06-28 00:14] LABS: ALANINE AMINOTRANSFERASE 7 U/L (12-78); ALBUMIN 3.1 g/dL (3.4-5.0); ALKALINE PHOSPHATASE 105 U/L (46-116); ASPARTATE AMINOTRANSFERASE 18 U/L (15-37); BILIRUBIN,DIRECT 0.1 mg/dL (0.0-0.2); BILIRUBIN,TOTAL 0.4 mg/dL (0.2-1.0); LIPASE 12 U/L (73-393); TOTAL PROTEIN, SERUM 7.3 g/dL (6.4-8.2)
[2022-06-28 00:30] LABS: BACTERIA,URINE Rare /HPF (None Seen); HYALINE CASTS, URINE Rare /LPF (None Seen); RBC,URINE 0-2 /HPF (0-2); SQUAMOUS EPITHELIAL CELL,UR Few /HPF (None Seen)
[2022-06-28] MEDS ORDERED: DEXTROSE 50%-WATER 50 ML DISP.SYRIN IV PRN (00:30)
[2022-06-28] MEDS ORDERED: IV NS 0.9% 1,000 ML IV SCH (00:30)
[2022-06-28] MEDS ORDERED: ONDANSETRON HCL/PF 4 MG/2 ML VIAL IVP PRN (00:30)
[2022-06-28] MEDS ORDERED: MORPHINE SULFATE INJ 2 MG/ML DISP.SYRIN IV PRN (00:30)
[2022-06-28] MEDS ORDERED: *INSULIN REGULAR(HUMULIN R)HUM 100 UNIT/ML VIAL SQ PRN (00:30)
[2022-06-28] MEDS ORDERED: MAG HYDROX/AL HYDROX/SIMETH 30 ML UDC GT PRN (00:30)
[2022-06-28] MEDS ORDERED: MAGNESIUM HYDROXIDE 30 ML UDC GT PRN (00:30)
[2022-06-28] MEDS: BLOOD SUGAR DIAGNOSTIC 1 EACH STRIP VI SCH ×5 (00:30→21:22)
--- NOTE | 2022-06-28 01:12 | NUR ---
ACCUCHECK BS 114
--- NOTE | 2022-06-28 04:13 | NUR ---
PLACED THE THIRD CALL TO STAT RAD TO READ THE IMAGING!
[2022-06-28] MEDS ORDERED: ACETAMINOPHEN 650 MG/20.3 ML UDC GT PRN (06:00)
[2022-06-28] MEDS ORDERED: DOCU-141 GT (07:33)
[2022-06-28] MEDS: INSULIN REGULAR, HUMAN 100 UNIT/ML 3 ML VIAL SQ PRN (08:47)
--- NOTE | 2022-06-28 08:48 | NUR ---
BS 108MG/DL, NO INSULIN COVERAGE
[2022-06-28] MEDS: LOSARTAN POTASSIUM 50 MG TABLET GT SCH (09:00)
[2022-06-28] MEDS: METHIMAZOLE (5MG) 5 MG TABLET GT SCH ×2 (09:00→17:28)
[2022-06-28] MEDS: GABAPENTIN 100 MG CAPSULE GT SCH (09:30)
[2022-06-28] MEDS: HEPARIN SODIUM, PORCINE 5000 UNITS/1 ML VIAL SQ SCH ×2 (09:30→21:13)
[2022-06-28] MEDS: MEMANTINE HCL 5 MG TABLET GT SCH ×2 (09:30→17:28)
[2022-06-28] MEDS: LEVETIRACETAM SOL (5 ML) 100 MG/ML UDC GT SCH ×2 (09:30→17:28)
[2022-06-28] MEDS ORDERED: HEPARIN SODIUM, PORCINE 5000 UNITS/1 ML VIAL ONE (09:36)
[2022-06-28] MEDS ORDERED: METOCLOPRAMIDE HCL 10 MG/2 ML VIAL ONE (09:37)
[2022-06-28] MEDS ORDERED: FOLIC ACID 1 MG TABLET ONE (09:37)
[2022-06-28] MEDS ORDERED: FERROUS SULFATE (325 MG) 325 MG/TAB TABLET ONE (09:37)
[2022-06-28] MEDS ORDERED: GABAPENTIN 100 MG CAPSULE ONE (09:37)
[2022-06-28] MEDS ORDERED: LEVETIRACETAM SOL (5 ML) 100 MG/ML UDC ONE (09:37)
[2022-06-28] MEDS ORDERED: LOSARTAN POTASSIUM 25 MG TABLET ONE (09:38)
[2022-06-28] MEDS ORDERED: MULTIVIT W/MINERALS 1 TAB TABLET ONE (09:38)
[2022-06-28] MEDS ORDERED: MEMANTINE HCL 5 MG TABLET ONE (09:38)
[2022-06-28] MEDS: FOLIC ACID 1 MG TABLET GT SCH (09:44)
[2022-06-28] MEDS: MULTIVIT W/MINERALS 1 TAB TABLET GT SCH (09:44)
[2022-06-28] MEDS: FERROUS SULFATE (325 MG) 325 MG/TAB TABLET GT SCH (09:44)
[2022-06-28] MEDS: IV D5/0.45 NACL 1,000 ML IV SCH ×2 (10:06→22:04)
[2022-06-28] MEDS: METOCLOPRAMIDE HCL 10 MG/2 ML VIAL IV SCH ×3 (10:06→21:17)
[2022-06-28] MEDS ORDERED: LEVOFLOXACIN 500 MG /D5W 100ML 100 ML IV ONE (11:25)
[2022-06-28] MEDS: LEVOFLOXACIN 500 MG /D5W 100ML 500 MG in PREMIX 1 EA IV SCH (11:31)
--- NOTE | 2022-06-28 11:43 | NUR ---
bed assigned. 314.2, admitting aware
--- NOTE | 2022-06-28 11:48 | NUR ---
PT REPORT GIVEN TO KIERAN BALDWIN
--- NOTE | 2022-06-28 12:28 | NUR ---
PT TRANSFERRED TO [facility] VIA [facility] ACLS PROTOCOL. WARM HANDOFF GIVEN TO RN ASSIGNED.
--- NOTE | 2022-06-28 15:30 | NUR ---
RN NOTES REGLAN NOT GIVEN PATIENT IV LINE PULLED AND ATTEMPTED 3X BUT INFILTRATED AND WAITING FOR MIDLINE INSERTION
--- NOTE | 2022-06-28 16:00 | NUR ---
SHORE HAND DREDGE OR BARGE NOTES RECEIVED PATIENT FROM ER WITH C/C OF NOT TOLERATING THE FEEDING WITH NAUSEA AND VOMITING , DX OF GT MALFUNCTION , FULL CODE , AND NO ISOLATION , NON VERBAL AND EYES OPEN ONLY , ON TELE AND SUPERVISOR BLOOD DONOR RECRUITERS ATTACHED , INCONTINENT BM X1 , BODY ASSESSMENT DONE AND NOTED WITH SKIN DISCOLORATION LEFT FOREARM AND RIGHT FOREARM , SACRUM REDNESS AND WOUND ON THE LEFT UPPER ARM FROM MIDLINE REMOVAL , ATTEMPTED TO INSERT IV ACCESS PERIPHERAL LINE BUT GOT INFILTRATED AND WITH ORDER FOR MIDLINE , NO SOB OR DISTRESS NOTED AND NO S/S OF PAIN AND DISCOMFORT NOTED . SAFETY PRECAUTIONS, IN PLACED , BED IN LOWEST POSITION , SR UP X 2 AND WILL CONTINUE TO MONITOR .
--- NOTE | 2022-06-28 18:30 | NUR ---
RN NOTES IV ACCESS OF MIDLINE INSERTED ON RIGHT UPPER ARM G18 AND SECURED WITH MARILYNN BANDAGE IV FLUID CONTINUE ORDERED
--- NOTE | 2022-06-28 19:30 | NUR ---
RN CLOSING NOTES PATIENT ON BED AWAKE NON VERBAL , DX OF GT MALFUNCTION , FULL CODE , AND NO ISOLATION , NON VERBAL AND EYES OPEN ONLY , ON TELE AND SHEEP KILLER ATTACHED READING SR HR 78 , NEW IV ACCESS OF MIDLINE RIGHT UPPER ARM G18 INTACT AND PATENT WITH ON GOING IV HYDRATION , ALL DUE MEDS GIVEN VAI GTUBE AND NO MALFUNCTION NOTED , NO RESIDUAL AND FLUSHED WELL , NO SOB OR DISTRESS NOTED AND NO S/S OF PAIN AND DISCOMFORT NOTED . SAFETY PRECAUTIONS, IN PLACED , BED IN LOWEST POSITION , SR UP X 2 AND WILL CONTINUE TO MONITOR . ENDORSED TO NEXT SHIFT
--- NOTE | 2022-06-28 19:38 | NUR ---
RN OPENING NOTE; RECEIVED PT IN BED AAOX1 CONFUSED,MURPHY WELL ON RM AIR NO SOB/DISTRESS NOTED,BREATHING EVEN AND UNLABORED,NO SIGN OF PAIN/DISCOMFORT AT THIS TIME,IV ACCESS ON EB ML 18G WITH NS @75ML/HR MURPHY WELL,SAFETY MEASURE INPLACE,CALL LIGHT WITHIN REACH,WILL CONTINUE TO MONITOR.
[2022-06-28 20:00] VITALS: BP 133/75
[2022-06-28] MEDS: ATORVASTATIN 10 MG TABLET GT SCH (21:12)
[2022-06-29] VITALS: BP 154/78
[2022-06-29] MEDS: METOCLOPRAMIDE HCL 10 MG/2 ML VIAL IV SCH ×4 (03:41→21:24)
[2022-06-29] MEDS: BLOOD SUGAR DIAGNOSTIC 1 EACH STRIP VI SCH ×4 (06:19→22:46)
--- NOTE | 2022-06-29 06:24 | NUR ---
RN CLOSSING NOTE; PT IN BED SLEEPING BUT EASY TO AROUSED, AAOX1 CONFUSED,MURPHY WELL ON RM AIR NO SOB/DISTRESS NOTED,BREATHING EVEN AND UNLABORED,NO SIGN OF PAIN/DISCOMFORT AT THIS TIME,DUE MEDS GIVEN ORDER,ALL NEEDS ATTENDED,IV ACCESS ON EB ML 18G WITH NS @75ML/HR MURPHY WELL,SAFETY MEASURE INPLACE,CALL LIGHT WITHIN REACH,WILL ENDORSED TO NEXT SHIFT.
[2022-06-29 06:36] LABS: BASOPHILS % (AUTO) 0.3 % (0.0-2.0); EOSINOPHILS % (AUTO) 1.3 % (0.0-6.0); HEMATOCRIT 33 % (33-45); HEMOGLOBIN 10.3 g/dL (11.5-14.8); LYMPHOCYTES # (AUTO) 0.7 K/uL (0.8-4.8); LYMPHOCYTES % (AUTO) 8.5 % (20.0-44.0); MEAN CORPUSCULAR HGB CONC 31 g/dl (31.0-36.0); MEAN CORPUSCULAR VOLUME 78 fL (82-100); MONOCYTES # (AUTO) 0.4 K/uL (0.1-1.30); MONOCYTES % (AUTO) 5.4 % (2.0-12.0); NEUTROPHILS # (AUTO) 6.8 K/uL (1.8-8.9); NEUTROPHILS % (AUTO) 84.5 % (43.0-81.0); PLATELET COUNT (AUTO) 175 K/uL (150-450)
[2022-06-29 06:53] LABS: ALANINE AMINOTRANSFERASE 8 U/L (12-78); ALBUMIN 2.8 g/dL (3.4-5.0); ALKALINE PHOSPHATASE 93 U/L (46-116); ASPARTATE AMINOTRANSFERASE 19 U/L (15-37); BILIRUBIN,TOTAL 0.4 mg/dL (0.2-1.0); CARBON DIOXIDE 27 mmol/L (21-32); CHLORIDE 108 mmol/L (98-107); CREATININE 0.6 mg/dL (0.6-1.3); GLUCOSE 136 mg/dL (74-106); MAGNESIUM 1.9 mg/dL (1.8-2.4); PHOSPHORUS 3.4 mg/dL (2.5-4.9); POTASSIUM 3.2 mmol/L (3.5-5.1); SODIUM SERUM 141 mmol/L (136-145); TOTAL PROTEIN, SERUM 6.7 g/dL (6.4-8.2); UREA NITROGEN, BLOOD 20 mg/dL (7-18)
[2022-06-29 08:00] VITALS: BP 113/69
--- NOTE | 2022-06-29 08:03 | NUR ---
RESIDENTIAL NURSE OPENING NOTE Patient in bed, awake. A/O x 1. On O2 t 2 LPM, breathing evenly and unlabored. No SOB or s/s of distress noted. IV access on EB midline infusing D5NS at 75 ml/hr. G-tube in place, intact. On tele monitoring showing SR, HR 79. Safety precautions in place: bed in low, locked position; siderails up x 2; call light within reach. Will continue to monitor.
[2022-06-29] MEDS: POTASSIUM CL. PREMIX PERIPHER. 50 ML IV SCH ×4 (08:09→11:42)
[2022-06-29] MEDS: METHIMAZOLE (5MG) 5 MG TABLET GT SCH ×2 (09:34→16:58)
[2022-06-29] MEDS: GABAPENTIN 100 MG CAPSULE GT SCH (09:34)
[2022-06-29] MEDS: LOSARTAN POTASSIUM 50 MG TABLET GT SCH (09:35)
[2022-06-29] MEDS: MULTIVIT W/MINERALS 1 TAB TABLET GT SCH (09:35)
[2022-06-29] MEDS: FOLIC ACID 1 MG TABLET GT SCH (09:36)
[2022-06-29] MEDS: LEVETIRACETAM SOL (5 ML) 100 MG/ML UDC GT SCH ×2 (09:36→16:58)
[2022-06-29] MEDS: MEMANTINE HCL 5 MG TABLET GT SCH ×2 (09:36→16:58)
[2022-06-29] MEDS: FERROUS SULFATE (325 MG) 325 MG/TAB TABLET GT SCH (09:36)
[2022-06-29] MEDS: HEPARIN SODIUM, PORCINE 5000 UNITS/1 ML VIAL SQ SCH ×2 (09:39→21:22)
--- NOTE | 2022-06-29 10:31 | NUR ---
RN NOTE Patient has POLST on file, states Attempt CPR but do not intubate. Updated code status in system.
[2022-06-29] MEDS ORDERED: GLUCERNA 1.2 1,000 ML BOTTLE NG PRN (12:00)
[2022-06-29 12:21] VITALS: BP 117/68
[2022-06-29] MEDS: IV D5/0.45 NACL 1,000 ML IV SCH (12:21)
[2022-06-29] MEDS: LEVOFLOXACIN 500 MG /D5W 100ML 500 MG in PREMIX 1 EA IV SCH (12:40)
--- NOTE | 2022-06-29 13:00 | NUR ---
RN NOTE TUBE FEEDING STARTED, GLUCERNA 1.2 @20ML/HR, PER DIETITIAN RECOMMENDATION.
[2022-06-29 16:00] VITALS: BP 108/65
[2022-06-29] MEDS ORDERED: GLUCERNA 1.2 1,000 ML BOTTLE PEG PRN (16:00)
--- NOTE | 2022-06-29 16:27 | NUR ---
RN NOTE CHECKED GT FEEDING FOR RESIDUAL, 0ML. WILL INCREASE RATE TO 30ML/HR. GOAL IS 45ML/HR.
[2022-06-29] MEDS: INSULIN REGULAR, HUMAN 100 UNIT/ML 3 ML VIAL SQ PRN (17:33)
--- NOTE | 2022-06-29 18:45 | NUR ---
RN CLOSING NOTE PATIENT ASLEEP IN BED, EASILY AWAKENED. NON VERBAL, ON TELE AND STAFF ACCOUNTANT ATTACHED READING SR HR 97, IV ACCESS: R UA MIDLINE 18G RUNNING D5 NS @75ML/HR, INTACT AND PATENT, ALL DUE MEDS GIVEN VIA G-TUBE AND NO MALFUNCTION NOTED, NO RESIDUAL AND FLUSHED WELL, GT FEEDING STARTED AND RUNNING GLUCERNA 1.2 @30ML/HR. NO SOB/DISTRESS NOTED. NO S/S OF PAIN AND DISCOMFORT NOTED. SAFETY PRECAUTIONS IN PLACED, CALL LIGHT WITHIN REACH, BED IN LOWEST POSITION, SIDE RAILS UP X 2. WILL ENDORSED TO NEXT SHIFT FOR ANDREW.
--- NOTE | 2022-06-29 19:30 | NUR ---
noc rn note received patient in bed. a/ox1. no s/s of apparent distress on room air. not exhibiting pain via flacc. patient non-verbal. tele monitor reading sinus rhythm with 87 bpm. G-tube running Glucerna 1.2 @30mls/hr-- will check for residuals. IV access on r. ua midline running D5 NS @75mls/hr. safety in place. call light within reach. will continue with patient's plan of care.
[2022-06-29 20:00] VITALS: BP_SYST 108; BP_SYST 115; BP_DIAS 62; BP_DIAS 65
[2022-06-29] MEDS: ATORVASTATIN 10 MG TABLET GT SCH (21:24)
[2022-06-30] VITALS (9 sets, daily range): BP systolic 94–125; BP diastolic 48–65
[2022-06-30] MEDS: METOCLOPRAMIDE HCL 10 MG/2 ML VIAL IV SCH ×4 (04:34→22:25)
[2022-06-30] MEDS: IV D5/0.45 NACL 1,000 ML IV SCH ×2 (04:34→14:58)
[2022-06-30 06:46] LABS: CARBON DIOXIDE 27 mmol/L (21-32); CHLORIDE 107 mmol/L (98-107); CREATININE 0.7 mg/dL (0.6-1.3); GLUCOSE 150 mg/dL (74-106); POTASSIUM 3.3 mmol/L (3.5-5.1); SODIUM SERUM 141 mmol/L (136-145); UREA NITROGEN, BLOOD 12 mg/dL (7-18)
[2022-06-30] MEDS: BLOOD SUGAR DIAGNOSTIC 1 EACH STRIP VI SCH ×4 (06:46→22:33)
[2022-06-30] MEDS: INSULIN REGULAR, HUMAN 100 UNIT/ML 3 ML VIAL SQ PRN ×2 (06:48→18:42)
[2022-06-30 07:20] LABS: BASOPHILS % (AUTO) 0.2 % (0.0-2.0); EOSINOPHILS % (AUTO) 1.3 % (0.0-6.0); HEMATOCRIT 33 % (33-45); HEMOGLOBIN 10.4 g/dL (11.5-14.8); LYMPHOCYTES # (AUTO) 0.5 K/uL (0.8-4.8); LYMPHOCYTES % (AUTO) 5.9 % (20.0-44.0); MEAN CORPUSCULAR HGB CONC 32 g/dl (31.0-36.0); MEAN CORPUSCULAR VOLUME 78 fL (82-100); MONOCYTES # (AUTO) 0.5 K/uL (0.1-1.30); MONOCYTES % (AUTO) 6.6 % (2.0-12.0); NEUTROPHILS # (AUTO) 6.9 K/uL (1.8-8.9); PLATELET COUNT (AUTO) 157 K/uL (150-450); RED BLOOD CELL COUNT(AUTO) 4.22 MIL/uL (4.0-5.2)
--- NOTE | 2022-06-30 08:00 | NUR ---
COORDINATOR HOTELS OPENING NOTE PATIENT ASLEEP IN BED, EASILY AWAKENED. NON VERBAL, ON TELE AND HOSPITALITY WORKERS ATTACHED READING SR , IV ACCESS: R UA MIDLINE 18G RUNNING D5 NS @75ML/HR, INTACT AND PATENT, FLUSHES WELL. GT PATENT AND INTACT, NO RESIDUAL AND FLUSHED WELL, ON GLUCERNA 1.2 @45ML/HR. NO SOB/DISTRESS NOTED. NO S/S OF PAIN AND DISCOMFORT NOTED. SAFETY PRECAUTIONS IN PLACED, CALL LIGHT WITHIN REACH, BED IN LOWEST POSITION, SIDE RAILS UP X 2. WILL CONTINUE PLAN OF CARE.
--- NOTE | 2022-06-30 08:08 | NUR ---
WOUND CARE CONSULT: PT PRESENTS WITH HUGE AREA OF SCARRING TO SACRUM, FRAGILE HEALED AREA TO LEFT UPPER ARM AND CACHEXIA, PRESENT ON ADMISSION. RECOMMENDATIONS MADE FOR SKIN PROTECTION. DISCUSSED WITH NURSING STAFF. MD IN AGREEMENT WITH PLAN OF CARE.
[2022-06-30] MEDS ORDERED: Z GUARD REMEDY 4 OZ OINT TP PRN (08:30)
[2022-06-30] MEDS: LOSARTAN POTASSIUM 50 MG TABLET GT SCH (09:00)
[2022-06-30] MEDS: METHIMAZOLE (5MG) 5 MG TABLET GT SCH ×2 (09:15→16:34)
[2022-06-30] MEDS: LEVETIRACETAM SOL (5 ML) 100 MG/ML UDC GT SCH ×2 (09:15→16:34)
[2022-06-30] MEDS: FOLIC ACID 1 MG TABLET GT SCH (09:15)
[2022-06-30] MEDS: MEMANTINE HCL 5 MG TABLET GT SCH ×2 (09:15→16:34)
[2022-06-30] MEDS: POTASSIUM CHLORIDE 20 MEQ POWDER PACKET GT SCH (09:15)
[2022-06-30] MEDS: GABAPENTIN 100 MG CAPSULE GT SCH (09:15)
[2022-06-30] MEDS: FERROUS SULFATE (325 MG) 325 MG/TAB TABLET GT SCH (09:15)
[2022-06-30] MEDS: Z GUARD REMEDY 4 OZ OINT TP SCH (09:16)
[2022-06-30] MEDS: MULTIVIT W/MINERALS 1 TAB TABLET GT SCH (09:16)
[2022-06-30] MEDS: HEPARIN SODIUM, PORCINE 5000 UNITS/1 ML VIAL SQ SCH ×2 (09:19→21:14)
[2022-06-30] MEDS: LEVOFLOXACIN 500 MG /D5W 100ML 500 MG in PREMIX 1 EA IV SCH (10:47)
--- NOTE | 2022-06-30 18:38 | NUR ---
PROFESSOR OF MEDICINE CLOSING NOTE PATIENT ASLEEP IN BED, EASILY AWAKENED. NON VERBAL, ON TELE AND GUIDANCE DIRECTOR ATTACHED READING SR HR 95, IV ACCESS: R UA MIDLINE 18G RUNNING D5 NS @75ML/HR, INTACT AND PATENT, FLUSHES WELL. GT PATENT AND INTACT, NO RESIDUAL AND FLUSHED WELL, ON GLUCERNA 1.2 @45ML/HR, TOLERATING WELL, NO VOMITING NOTED, NO DIARRHEA. NO SOB/DISTRESS NOTED. NO S/S OF PAIN AND DISCOMFORT NOTED. SAFETY PRECAUTIONS IN PLACED, CALL LIGHT WITHIN REACH, BED IN LOWEST POSITION, SIDE RAILS UP X 2. WILL ENDORSE TO NIGHT NURSE FOR ANDREW.
--- NOTE | 2022-06-30 19:10 | NUR ---
MS RN OPENING NOTE PATIENT IS SLEEPING IN BED. EASILY BEING AROUSED BY CALLING HER NAME AND BY TOUCHING HER SHOULDER. A/O X 1. SHE IS ON RA, OXYGENT SATURATING RATE IS 97%,TOLERATING WELL. NO S/S OF SOB OR DISTRESS. IV ACCESS IS AT RIGHT UA, MIDLINE, #18G, PATIENT AND INTACT, RUNNING D5 1/2NS AT 75 ML/HR. G-TUBE PLACEMENT IS CHECKED AND IS IN PLACED; PATENT AND INTACT. HAS ZERO RESIDUAL; FLUSHED WITH 30 ML OF WATER. G-TUBE IS RUNNING GLUCERNA 1.2 @ 45 ML/HR. SAFETY MEASURES ARE IN PLACE: BED IS IN LOWEST AND LOCKED POSITION; HOB IS ELEVATED > 45 DEGREE DURING FEEDING; BED ALARM IS SET, SIDE RAILS UP X 3. WILL CONTINUE MONITOR PATIENT'S CONDITION AND THE CARE PATIENT NEEDS THROUGHOUT THE SHIFT.
[2022-06-30] MEDS: ATORVASTATIN 10 MG TABLET GT SCH (21:13)
[2022-07-01] VITALS: BP 138/70
[2022-07-01 04:00] VITALS: BP 149/55
[2022-07-01] MEDS: METOCLOPRAMIDE HCL 10 MG/2 ML VIAL IV SCH ×3 (04:41→15:36)
[2022-07-01] MEDS: IV D5/0.45 NACL 1,000 ML IV SCH (04:42)
[2022-07-01] MEDS: INSULIN REGULAR, HUMAN 100 UNIT/ML 3 ML VIAL SQ PRN ×2 (06:24→11:45)
[2022-07-01 06:27] LABS: BASOPHILS % (AUTO) 0.2 % (0.0-2.0); EOSINOPHILS % (AUTO) 2.1 % (0.0-6.0); HEMATOCRIT 30 % (33-45); HEMOGLOBIN 9.5 g/dL (11.5-14.8); LYMPHOCYTES # (AUTO) 0.5 K/uL (0.8-4.8); LYMPHOCYTES % (AUTO) 7.2 % (20.0-44.0); MEAN CORPUSCULAR HGB CONC 32 g/dl (31.0-36.0); MEAN CORPUSCULAR VOLUME 77 fL (82-100); MONOCYTES # (AUTO) 0.5 K/uL (0.1-1.30); MONOCYTES % (AUTO) 7.9 % (2.0-12.0); NEUTROPHILS # (AUTO) 5.2 K/uL (1.8-8.9); NEUTROPHILS % (AUTO) 82.6 % (43.0-81.0); PLATELET COUNT (AUTO) 144 K/uL (150-450); RED BLOOD CELL COUNT(AUTO) 3.88 MIL/uL (4.0-5.2); WHITE BLOOD COUNT (AUTO) 6.3 K/uL (4.3-11.0)
[2022-07-01 07:20] LABS: CALCIUM, SERUM 7.9 mg/dL (8.5-10.1); CARBON DIOXIDE 27 mmol/L (21-32)
--- NOTE | 2022-07-01 07:30 | NUR ---
MS RN OPENING NOTE RECEIVED PATIENT ON BED RESTING AND A/O X1. HOB ELEVATED. ON ROOM AIR TOLERATING WELL. NO SOB NOTED. NOT IN DISTRESS. IN NO SIGNS OF PAIN VIA FLACC LEVEL OF PAIN. ON TELE MONITOR CURRENTLY READING SINUS TACHYCARDIA AT 104BPM. WITH IV ACCESS AT THE RIGHT UPPER ARM MIDLINE WITH IVF D5 1/2NS AT 75ML/HR INFUSING WELL. ON GLUCERNA 1.2 AT 45ML/HR VIA G-TUBE TOLERATING WELL. SAFETY MEASURES IN PLACED. CALL LIGHT WITHIN REACH. BED ON LOWEST LOCKED POSITION, SIDE RAILS UP X2. WILL CONTINUE TO MONITOR.
[2022-07-01] MEDS: BLOOD SUGAR DIAGNOSTIC 1 EACH STRIP VI SCH ×2 (07:32→11:45)
--- NOTE | 2022-07-01 07:44 | NUR ---
MS RN CLOSING NOTE PATIENT IS SLEEPING IN BED. EASILY BEING AROUSED BY CALLING HER NAME AND BY TOUCHING HER SHOULDER. A/O X 1. SHE IS ON RA, OXYGENT SATURATING RATE IS 97%,TOLERATING WELL. NO S/S OF SOB OR DISTRESS. IV ACCESS IS AT RIGHT UA, MIDLINE, #18G, PATIENT AND INTACT, RUNNING D5 1/2NS AT 75 ML/HR. G-TUBE IS PATENT AND INTACT; RUNNING GLUCERNA 1.2 @ 45 ML/HR. SAFETY MEASURES ARE IN PLACE: BED IS IN LOWEST AND LOCKED POSITION; HOB IS ELEVATED > 45 DEGREE DURING FEEDING; BED ALARM IS SET, SIDE RAILS UP X 3. ENDORSED NEXT SHIFT NURSE FOR CONTINUE PATIENT CARE.
[2022-07-01 08:35] VITALS: BP 146/72
[2022-07-01 08:49] LABS: CHLORIDE 104 mmol/L (98-107); CREATININE 0.8 mg/dL (0.6-1.3); GLUCOSE 154 mg/dL (74-106); POTASSIUM 3.4 mmol/L (3.5-5.1); SODIUM SERUM 137 mmol/L (136-145); UREA NITROGEN, BLOOD 12 mg/dL (7-18)
[2022-07-01] MEDS ORDERED: LEVOFLOXACIN (250MG) 250 MG TABLET GT SCH (09:00)
[2022-07-01] MEDS: LEVETIRACETAM SOL (5 ML) 100 MG/ML UDC GT SCH ×2 (09:21→16:04)
[2022-07-01] MEDS: GABAPENTIN 100 MG CAPSULE GT SCH (09:21)
[2022-07-01] MEDS: METHIMAZOLE (5MG) 5 MG TABLET GT SCH ×2 (09:21→16:04)
[2022-07-01] MEDS: FOLIC ACID 1 MG TABLET GT SCH (09:22)
[2022-07-01] MEDS: MEMANTINE HCL 5 MG TABLET GT SCH ×2 (09:22→16:04)
[2022-07-01] MEDS: MULTIVIT W/MINERALS 1 TAB TABLET GT SCH (09:22)
[2022-07-01] MEDS: LOSARTAN POTASSIUM 50 MG TABLET GT SCH (09:22)
[2022-07-01] MEDS: FERROUS SULFATE (325 MG) 325 MG/TAB TABLET GT SCH (09:22)
[2022-07-01] MEDS: POTASSIUM CHLORIDE 20 MEQ POWDER PACKET GT SCH (09:22)
[2022-07-01] MEDS: Z GUARD REMEDY 4 OZ OINT TP SCH (09:23)
[2022-07-01] MEDS: HEPARIN SODIUM, PORCINE 5000 UNITS/1 ML VIAL SQ SCH (09:24)
[2022-07-01] MEDS ORDERED: LEVO250T59 GT (11:42)
[2022-07-01] MEDS ORDERED: METO-295 PO (11:44)
[2022-07-01] MEDS ORDERED: POTASSIUM CHLORIDE 20 MEQ POWDER PACKET GT ONE (12:00)
--- NOTE | 2022-07-01 14:10 | NUR ---
MS PERFUME MAKER NOTES PATIENT WAS ORDERED BY DR. MONK FOR DISCHARGE. PATIENT IS TO BE DISCHARGED BACK TO SNF. DISCHARGE FORM AND MEDICATION INSTRUCTION PROVIDED. WITH G-TUBE IN PLACED FOR FEEDING. IV LINE REMOVED. PATIENT UNABLE TO SIGN. PATIENT WAS PICKED UP BY AMBULANCE PERSONNEL IN STABLE CONDITION VIA GURNEY. MD AND CHARGE NURSE ARE AWARE OF THE DISCHARGE.
[2022-07-01 16:35] VITALS: BP 108/62
== END 2022-07-01 16:43 | DRG 393 ==
LOC: ER 20:08 → TRANSITION 06-28 05:21 → TELE 06-28 11:55
PROVIDERS: ADMIT Internal Medicine; ATTEND Internal Medicine
PROC: 02HV33Z Insertion of Infusion Device into Superior Vena Cava, Percutaneous Approach (ICD-10-PCS; principal; 2022-06-28)
PROC: B548ZZA Ultrasonography of Superior Vena Cava, Guidance (ICD-10-PCS; 2022-06-28)
DX: K94.23 Gastrostomy malfunction (principal); E43 Unspecified severe protein-calorie malnutrition; N17.0 Acute kidney failure with tubular necrosis; N39.0 Urinary tract infection, site not specified; G93.40 Encephalopathy, unspecified; E11.9 Type 2 diabetes mellitus without complications; G40.909 Epilepsy, unspecified, not intractable, without status epilepticus; Y83.3 Surgical operation with formation of external stoma as the cause of abnormal reaction of the patient, or of later complication, without mention of misadventure at the time of the procedure; Y92.129 Unspecified place in nursing home as the place of occurrence of the external cause; Z20.822 Contact with and (suspected) exposure to COVID-19; Z66 Do not resuscitate; E78.5 Hyperlipidemia, unspecified; D64.9 Anemia, unspecified; E03.9 Hypothyroidism, unspecified; F03.90 Unspecified dementia, unspecified severity, without behavioral disturbance, psychotic disturbance, mood disturbance, and anxiety; J84.112 Idiopathic pulmonary fibrosis; R13.10 Dysphagia, unspecified; G60.9 Hereditary and idiopathic neuropathy, unspecified; Z86.16 Personal history of COVID-19; Z86.73 Personal history of transient ischemic attack (TIA), and cerebral infarction without residual deficits; Z88.0 Allergy status to penicillin; L89.159 Pressure ulcer of sacral region, unspecified stage; Z79.899 Other long term (current) drug therapy; Z79.84 Long term (current) use of oral hypoglycemic drugs; K52.9 Noninfective gastroenteritis and colitis, unspecified; I10 Essential (primary) hypertension; E88.09 Other disorders of plasma-protein metabolism, not elsewhere classified
CPT/HCPCS: 36410; 36415; 71045-TC; 80048-TC; 80053-TC; 80076-TC; 81001; 82962-TC; 83605-TC; 83690-TC; 83735-TC; 84100-TC; 84484-TC; 85025-TC; 87040-TC; 87081-TC; A4216; C9803; G0378; J1644; J1815; J1953; J1956; J2270; J2405; J2765; J3480; J3490; J7030; J7042